=== PATIENT | male | born 1955 | race African-American/Black ===

== ENCOUNTER 2019-03-26 21:59 | Inpatient (IN) | payer OTHER ==
[~2019-03-26] VITALS: Ht 182.9 cm; Wt 102.1 kg
[2019-03-26] MEDS ORDERED: ONDANSETRON PF 4 MG/2 ML VIAL. ONE (23:08)
[2019-03-27 00:09] LABS: BASO # 0.1 x10^3/uL (0.0-0.2); BASO % 1 % (0-3); EOS % 0 % (0-3); HEMATOCRIT 22.8 % (39.0-53.0); HEMOGLOBIN 7.5 g/dL (13.0-17.5); LYMPH # 0.6 x10^3/uL (1.0-4.8); LYMPH % 7 % (24-48); MEAN CORPUSCULAR HEMOGLOBIN 27 pg (25-35); MEAN CORPUSCULAR HGB CONC 33 g/dL (31-37); MEAN CORPUSCULAR VOLUME 83 fL (79-100); MONO # 0.8 x10^3/uL (0.0-1.1); MONO % 9 % (0-9); NEUT # 7.3 x10^3/uL (1.8-7.7); NEUT % 83 % (31-73); PLATELET COUNT 122 x10^3/uL (140-400); RED BLOOD COUNT 2.76 x10^6/uL (4.30-5.70); RED CELL DISTRIBUTION WIDTH 18.3 % (11.5-14.5); WHITE BLOOD COUNT 8.8 x10^3/uL (4.0-11.0)
[2019-03-27 00:20] LABS: CALCIUM 7.9 mg/dL (8.5-10.1); CREATININE 5.5 mg/dL (0.7-1.3); GFR 10.6; POTASSIUM 4.3 mmol/L (3.5-5.1)
[2019-03-27 00:26] LABS: ALBUMIN 3.2 g/dL (3.4-5.0); ALBUMIN/GLOBULIN RATIO 0.8 (1.0-1.7); TOTAL BILIRUBIN 0.5 mg/dL (0.2-1.0); TOTAL PROTEIN 7.1 g/dL (6.4-8.2)
[2019-03-27] MEDS: MECLIZINE HCL 12.5 MG TABLET. PO ONE ×2 (00:45)
--- NOTE | 2019-03-27 00:57 | PHYS DOC ---
Past Medical History Past Medical History: Diabetes-Type II, Hypertension, Renal Disease Additional Past Surgical Histo: cataract surgery, left hamstring surgery Alcohol Use: None Drug Use: None Adult General Chief Complaint Chief Complaint: DIZZY/LIGHT HEADED HPI HPI Patient is a 63 year old male who presents with multiple complaints. The patient states that he has been having worsening swelling in his lower extre mities and been coughing over the past few days. Notes he does have history of chronic renal disease stage III and hypertension. Currently on oral diuretic and states he does follow with a health plan specialist as part of his care. He states that he is also been having worsening dizziness which started earlier today. Notes that the dizziness worsens when he tries to get up and move. It is felt sick to his stomach and has had vomiting this evening with his symptoms. Denies chest pain or fever currently. Does note shortness of breath with exertion. Denies any known history of heart attack. Has not missed any doses of medication at home. States Review of Systems Review of Systems Constitutional: Denies fever or chills [] Eyes: Denies change in visual acuity, redness, or eye pain [] HENT: Denies nasal congestion or sore throat [] Respiratory: Cough[] Cardiovascular: Edema[] GI: Nausea, vomiting, denies abdominal pain bloody stools or diarrhea [] : Denies dysuria or hematuria [] Musculoskeletal: Denies back pain or joint pain [] Integument: Denies rash or skin lesions [] Neurologic: Dizziness, denies focal weakness or sensory changes [] All other systems were reviewed and found to be within normal limits, except as documented in this note. Current Medications Current Medications Current Medications Medications (Trade) Dose Ordered Sig/Tiffani Start Time Stop Time Status Last Admin Dose Admin Meclizine HCl (Antivert) 50 mg 1X ONCE 03/27/19 00:45 03/27/19 00:46 DC 03/27/19 00:45 50 MG Ondansetron HCl (Zofran) 4 mg STK-MED ONCE 03/26/19 23:08 03/26/19 23:31 DC Allergies Allergies Allergies Coded Allergies Type Severity Reaction Last Updated Verified Penicillins Allergy Intermediate 03/27/19 Yes Physical Exam Physical Exam Constitutional: Alert, afebrile, no acute distress. [] HENT: Normocephalic, atraumatic, bilateral external ears normal, oropharynx moist, no oral exudates, nose normal. [] Eyes: PERRLA, EOMI, horizontal nystagmus present, conjunctiva normal, no discharge. [] Neck: Normal range of motion, no tenderness, supple, no stridor. [] Cardiovascular:Heart rate regular rhythm, no murmur [] Lungs & Thorax: Fine rales in all lung hester, no wheezes, normal air movement bilaterally[] Abdomen: Bowel sounds normal, soft, no tenderness, no masses, no pulsatile masses. [] Skin: Warm, dry, no erythema, no rash. [] Back: No tenderness, no CVA tenderness. [] Extremities: No tenderness, no cyanosis, no clubbing, ROM intact, moderate to severe pitting lower extremity edema of 3+. [] Neurologic: Alert and oriented X 3, normal motor function, normal sensory function, no focal deficits noted. [] Current Patient Data Vital Signs Vital Signs Date Time Temp Pulse Resp B/P (MAP) Pulse Ox O2 Delivery O2 Flow Rate FiO2 03/27/19 00:45 81 18 95 03/26/19 23:00 97.8 186/82 (116) Room Air 97.8 Lab Values Laboratory Tests Test 03/26/19 23:05 White Blood Count 8.8 x10^3/uL (4.0-11.0) Red Blood Count 2.76 x10^6/uL (4.30-5.70) L Hemoglobin 7.5 g/dL (13.0-17.5) L Hematocrit 22.8 % (39.0-53.0) L Mean Corpuscular Volume 83 fL (79-100) Mean Corpuscular Hemoglobin 27 pg (25-35) Mean Corpuscular Hemoglobin Concent 33 g/dL (31-37) Red Cell Distribution Width 18.3 % (11.5-14.5) H Platelet Count 122 x10^3/uL (140-400) L Neutrophils (%) (Auto) 83 % (31-73) H Lymphocytes (%) (Auto) 7 % (24-48) L Monocytes (%) (Auto) 9 % (0-9) Eosinophils (%) (Auto) 0 % (0-3) Basophils (%) (Auto) 1 % (0-3) Neutrophils # (Auto) 7.3 x10^3/uL (1.8-7.7) Lymphocytes # (Auto) 0.6 x10^3/uL (1.0-4.8) L Monocytes # (Auto) 0.8 x10^3/uL (0.0-1.1) Eosinophils # (Auto) 0.0 x10^3/uL (0.0-0.7) Basophils # (Auto) 0.1 x10^3/uL (0.0-0.2) Sodium Level 143 mmol/L (136-145) Potassium Level 4.3 mmol/L (3.5-5.1) Chloride Level 108 mmol/L (98-107) H Carbon Dioxide Level 21 mmol/L (21-32) Anion Gap 14 (6-14) Blood Urea Nitrogen 76 mg/dL (8-26) H Creatinine 5.5 mg/dL (0.7-1.3) H Estimated GFR (Cockcroft-Gault) 10.6 BUN/Creatinine Ratio 14 (6-20) Glucose Level 159 mg/dL (70-99) H Calcium Level 7.9 mg/dL (8.5-10.1) L Total Bilirubin 0.5 mg/dL (0.2-1.0) Aspartate Amino Transferase (AST) 27 U/L (15-37) Alanine Aminotransferase (ALT) 70 U/L (16-63) H Alkaline Phosphatase 105 U/L (46-116) Total Protein 7.1 g/dL (6.4-8.2) Albumin 3.2 g/dL (3.4-5.0) L Albumin/Globulin Ratio 0.8 (1.0-1.7) L Lipase 243 U/L (73-393) Laboratory Tests 03/26/19 23:05 Laboratory Tests 03/26/19 23:05 EKG EKG Interpreted by me: Heart rate 83, sinus rhythm, normal intervals, normal axis, no acute ST/T-wave abnormalities present[] Radiology/Procedures Radiology/Procedures [facility] [address] [place] [address] IMAGING REPORT Signed PATIENT: YUNG DUQUE ACCOUNT: [id number] : 1955 LOCATION: [address] [place] [address] AGE: 63 SEX: M EXAM STATUS: ADM IN ORD. PHYSICIAN: MANJU STONE MD REASON: cough PROCEDURE: PORTABLE CHEST 1V Chest AP portable at 2337: Reason for examination: Cough. The heart size is upper normal. Mediastinum is unremarkable. Lung hester show no consolidated infiltrates or pleural effusions. No acute bony abnormalities are seen. Impression: No acute cardiopulmonary disease. Electronically signed by: Luca Raman MD (03/27/2019 1:28 AM) [facility] [place] [place] DICTATED and SIGNED BY: LUCA RAMAN MD DATE: 03/27/19 0128 [] Course & Med Decision Making Course & Med Decision Making Pertinent Labs and Imaging studies reviewed. (See chart for details) The patient was initially treated with IV fluids, Zofran, and meclizine. Upon receiving patient's lab work and x-ray imaging, the patient shows significant evidence of possible worsening renal failure as his GFR is currently 10. Patient also noted to have low hemoglobin 7.5. Chest x-ray shows evidence of pulmonary vascular congestion and given worsening edema in the lower extr emity's, I am concerned patient is having worsening fluid overload. This may be due to the patient's worsening renal function. After speaking with the patient, we have agreed that patient will benefit from admission to the hospital for diuresis and further evaluation with nephrology consultation in hospital. Patient admitted to Dr. Gutierrez. Yandy Disclaimer Yandy Disclaimer This electronic medical record was generated, in whole or in part, using a voice recognition dictation system. Departure Departure Impression: Primary Impression: Fluid overload Additional Impressions: Pulmonary edema Acute on chronic kidney failure Anemia Hypertension Disposition: 09 ADMITTED INPATIENT Admitting Physician: YUNI Condition: STABLE Referrals: BRADEN OROURKE (PCP) Problem Qualifiers Primary Impression: Fluid overload Hypervolemia type: unspecified Qualified Codes: E87.70 - Fluid overload, unspecified Additional Impressions: Pulmonary edema Chronicity: acute Qualified Codes: J81.0 - Acute pulmonary edema Acute on chronic kidney failure Acute renal failure type: unspecified Chronic kidney disease stage: stage 4 (severe) Qualified Codes: N17.9 - Acute kidney failure, unspecified; N18.4 - Chronic kidney disease, stage 4 (severe) Anemia Anemia type: unspecified type Qualified Codes: D64.9 - Anemia, unspecified Hypertension Hypertension type: unspecified Qualified Codes: I10 - Essential (primary) hypertension MANJU STONE MD Mar 27, 2019 00:56
[2019-03-27] MEDS ORDERED: ONDANSETRON PF 4 MG/2 ML VIAL. IV PRN (01:15)
[2019-03-27] MEDS ORDERED: FUROSEMIDE 40 MG/4 ML VIAL. IVP ONE (01:30)
--- NOTE | 2019-03-27 01:31 | RAD ---
Chest AP portable at 2337: Reason for examination: Cough. The heart size is upper normal. Mediastinum is unremarkable. Lung hester show no consolidated infiltrates or pleural effusions. No acute bony abnormalities are seen. Impression: No acute cardiopulmonary disease. Electronically signed by: Batsheva Ren MD (03/27/2019 1:28 AM) [facility] [id number]
[2019-03-27 03:00] VITALS: BP 185/85
[2019-03-27] MEDS ORDERED: TORS20TA2 PO (03:25)
[2019-03-27] MEDS ORDERED: BYSTOLIC20 MG PO (03:25)
[2019-03-27] MEDS ORDERED: LOSA25TA54 PO (03:25)
[2019-03-27] MEDS ORDERED: HYDR-2869 PO (03:25)
[2019-03-27] MEDS ORDERED: INSU100V13 SQ (03:25)
[2019-03-27] MEDS ORDERED: EPLE25TA4 PO (03:25)
[2019-03-27] MEDS ORDERED: ATOR20TA58 PO (03:25)
--- NOTE | 2019-03-27 06:51 | EKG ---
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
[2019-03-27 07:38] VITALS: BP 185/90
[2019-03-27] MEDS ORDERED: CYAN-25 PO (08:24)
[2019-03-27] MEDS ORDERED: FERR325T14 PO (08:24)
[2019-03-27] MEDS ORDERED: CYAN1TAB2 PO (08:24)
[2019-03-27] MEDS ORDERED: MULT1TAB52 PO (08:24)
[2019-03-27] MEDS ORDERED: TERA10CA3 PO (08:24)
[2019-03-27] MEDS ORDERED: FLU VAX QS 2019-20 (36MOS+)/PF 0.5 ML SYRINGE. VAX IM ONE (08:30)
[2019-03-27 10:47] VITALS: BP 175/77
--- NOTE | 2019-03-27 11:19 | PDOC1 ---
History and Physical Date of Admission Date of Admission DATE: 03/27/19 TIME: 11: Identification/Chief Complaint Chief Complaint SEEN IN ER WITH worsening swelling in his lower extremities and been coughing over the past few days. was followed by DR DUGAN AT [facility], however he has retired HAS history of chronic renal disease stage III and hypertension. 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 He states that he is also been having worsening dizziness which started earlier 03/26 . Notes that the dizziness worsens with activity. ate at [employer] YESTERDAY, THAN HAD SEVERE VOMITING X 5-6 episodes sick to his stomach and has had vomiting 03/26 with his symptoms. Denies chest pain or fever currently. Does note shortness of breath with exertion. Past Medical History Past Medical History Past Medical History Past Medical History Past Medical History: Diabetes-Type II, Hypertension, Renal Disease Additional Past Surgical Histo: cataract surgery, left hamstring surgery Alcohol Use: None Drug Use: None fhx htn Endocrine: Diabetes Family History Family History: Hypertension Social History Smoke: No ALCOHOL: none Drugs: None Current Problem List Problem List Problems Medical Problems: (1) Acute on chronic kidney failure Status: Acute (2) Anemia Status: Acute (3) Fluid overload Status: Acute (4) Hypertension Status: Acute (5) Pulmonary edema Status: Acute Current Medications Current Medications Current Medications Ondansetron HCl (Zofran) 4 mg STK-MED ONCE .ROUTE ; Start 03/26/19 at 23:08; Stop 03/26/19 at 23:31; Status DC Meclizine HCl (Antivert) 50 mg 1X ONCE PO Last administered on 03/27/19at 00:45; Start 03/27/19 at 00:45; Stop 03/27/19 at 00:46; Status DC Ondansetron HCl (Zofran) 4 mg PRN Q8HRS PRN IV NAUSEA/VOMITING Last administered on 03/27/19at 03:30; Start 03/27/19 at 01:15; Stop 03/28/19 at 01:14 Furosemide (Lasix) 40 mg 1X ONCE IVP Last administered on 03/27/19at 01:27; Start 03/27/19 at 01:30; Stop 03/27/19 at 01:31; Status DC Influenza Virus Vaccine Quadrival (Afluria Quad 2019-20 (3yr Up) Syringe) 0.5 ml ONCE ONCE VAX IM ; Start 03/27/19 at 08:30; Stop 03/27/19 at 08:31; Status DC Active Scripts Active Reported Folic Acid-Vit B6-Vit B12 Tab (Cyanocobalamin/Fa/Pyridoxine) 1 Each Tablet 1 Each PO DAILY Vitamin B-12 (Cyanocobalamin (Vitamin B-12)) 1,000 Mcg Tablet 1 Tab PO DAILY 30 Days Ferrous Sulfate 325 Mg Tablet 1 Tab PO DAILY Multivitamins (Multivitamin) 1 Each Tablet 1 Tab PO DAILY Terazosin Hcl 10 Mg Capsule 1 Cap PO DAILY Levemir (Insulin Detemir) 100 Unit/1 Ml Vial 60 Unit SQ DAILY Torsemide 20 Mg Tablet 20 Mg PO BID Hydralazine Hcl 50 Mg Tablet 1 Tab PO TID Bystolic (Nebivolol Hcl) 20 Mg Tablet 20 Mg PO DAILY Losartan Potassium (Losartan Potassium) 25 Mg Tablet 25 Mg PO DAILY Atorvastatin Calcium 20 Mg Tablet 20 Mg PO HS Eplerenone 25 Mg Tablet 25 Mg PO DAILY Allergies Allergies: Coded Allergies: Penicillins (Verified Allergy, Intermediate, 03/27/19) ROS Review of System Review of Systems Review of Systems Constitutional: Denies fever or chills [] Eyes: Denies change in visual acuity, redness, or eye pain [] HENT: Denies nasal congestion or sore throat [] Respiratory: Cough[] Cardiovascular: Edema[] GI: Nausea, vomiting, denies abdominal pain bloody stools or diarrhea [] : Denies dysuria or hematuria [] Musculoskeletal: Denies back pain or joint pain [] Integument: Denies rash or skin lesions [] Neurologic: Dizziness, denies focal weakness or sensory changes [] 14 PT systems were reviewed and found to be within normal limits, except as documented . General: YES: Fatigue Respiratory: YES: Shortness of breath, SOB with excertion Cardiovascular: yes Edema Gastrointestinal: Yes Nausea, Yes Vomiting Physical Exam Physical Exam Physical Exam Physical Exam Constitutional: Alert, afebrile, no acute distress. [] HENT: Normocephalic, atraumatic, bilateral external ears normal, oropharynx moist, no oral exudates, nose normal. [] Eyes: PERRLA, EOMI, horizontal nystagmus present, conjunctiva normal, no discharge. [] Neck: Normal range of motion, no tenderness, supple, no stridor. [] Cardiovascular:Heart rate regular rhythm, no murmur [] Lungs & Thorax: Fine rales in all lung hester, no wheezes, normal air movement bilaterally[] Abdomen: Bowel sounds normal, soft, no tenderness, no masses, no pulsatile masses. [] Skin: Warm, dry, no erythema, no rash. [] Back: No tenderness, no CVA tenderness. [] Extremities: No tenderness, no cyanosis, no clubbing, ROM intact, moderate to severe pitting lower extremity edema of 3+. [] Neurologic: Alert and oriented X 3, normal motor function, normal sensory function, no focal deficits noted. [] General: Alert, Oriented X3, Cooperative, No acute distress HEENT: Atraumatic, EOMI Lungs: Clear to auscultation Heart: RRR Breasts: Not examined Abdomen: Soft Rectal Exam: not examined PELVIC: Examination not indicated Extremities: No cyanosis, Other (2 plus ankle edema) Neuro: Normal speech, Cranial nerves 3-12 NL Psych/Mental Status: Mental status NL, Mood NL Vitals Vitals Vital Signs Date Time Temp Pulse Resp B/P (MAP) Pulse Ox O2 Delivery O2 Flow Rate FiO2 03/27/19 10:47 97.6 68 18 175/77 (109) 96 Room Air 97.6 Labs Labs Laboratory Tests Test 03/26/19 23:05 03/27/19 07:18 White Blood Count 8.8 x10^3/uL (4.0-11.0) Red Blood Count 2.76 x10^6/uL (4.30-5.70) Hemoglobin 7.5 g/dL (13.0-17.5) Hematocrit 22.8 % (39.0-53.0) Mean Corpuscular Volume 83 fL (79-100) Mean Corpuscular Hemoglobin 27 pg (25-35) Mean Corpuscular Hemoglobin Concent 33 g/dL (31-37) Red Cell Distribution Width 18.3 % (11.5-14.5) Platelet Count 122 x10^3/uL (140-400) Neutrophils (%) (Auto) 83 % (31-73) Lymphocytes (%) (Auto) 7 % (24-48) Monocytes (%) (Auto) 9 % (0-9) Eosinophils (%) (Auto) 0 % (0-3) Basophils (%) (Auto) 1 % (0-3) Neutrophils # (Auto) 7.3 x10^3/uL (1.8-7.7) Lymphocytes # (Auto) 0.6 x10^3/uL (1.0-4.8) Monocytes # (Auto) 0.8 x10^3/uL (0.0-1.1) Eosinophils # (Auto) 0.0 x10^3/uL (0.0-0.7) Basophils # (Auto) 0.1 x10^3/uL (0.0-0.2) Sodium Level 143 mmol/L (136-145) Potassium Level 4.3 mmol/L (3.5-5.1) Chloride Level 108 mmol/L (98-107) Carbon Dioxide Level 21 mmol/L (21-32) Anion Gap 14 (6-14) Blood Urea Nitrogen 76 mg/dL (8-26) Creatinine 5.5 mg/dL (0.7-1.3) Estimated GFR (Cockcroft-Gault) 10.6 BUN/Creatinine Ratio 14 (6-20) Glucose Level 159 mg/dL (70-99) Calcium Level 7.9 mg/dL (8.5-10.1) Total Bilirubin 0.5 mg/dL (0.2-1.0) Aspartate Amino Transf (AST/SGOT) 27 U/L (15-37) Alanine Aminotransferase (ALT/SGPT) 70 U/L (16-63) Alkaline Phosphatase 105 U/L (46-116) Total Protein 7.1 g/dL (6.4-8.2) Albumin 3.2 g/dL (3.4-5.0) Albumin/Globulin Ratio 0.8 (1.0-1.7) Lipase 243 U/L (73-393) Glucose (Fingerstick) 140 mg/dL (70-99) Laboratory Tests Test 03/26/19 23:05 03/27/19 07:18 White Blood Count 8.8 x10^3/uL (4.0-11.0) Red Blood Count 2.76 x10^6/uL (4.30-5.70) Hemoglobin 7.5 g/dL (13.0-17.5) Hematocrit 22.8 % (39.0-53.0) Mean Corpuscular Volume 83 fL (79-100) Mean Corpuscular Hemoglobin 27 pg (25-35) Mean Corpuscular Hemoglobin Concent 33 g/dL (31-37) Red Cell Distribution Width 18.3 % (11.5-14.5) Platelet Count 122 x10^3/uL (140-400) Neutrophils (%) (Auto) 83 % (31-73) Lymphocytes (%) (Auto) 7 % (24-48) Monocytes (%) (Auto) 9 % (0-9) Eosinophils (%) (Auto) 0 % (0-3) Basophils (%) (Auto) 1 % (0-3) Neutrophils # (Auto) 7.3 x10^3/uL (1.8-7.7) Lymphocytes # (Auto) 0.6 x10^3/uL (1.0-4.8) Monocytes # (Auto) 0.8 x10^3/uL (0.0-1.1) Eosinophils # (Auto) 0.0 x10^3/uL (0.0-0.7) Basophils # (Auto) 0.1 x10^3/uL (0.0-0.2) Sodium Level 143 mmol/L (136-145) Potassium Level 4.3 mmol/L (3.5-5.1) Chloride Level 108 mmol/L (98-107) Carbon Dioxide Level 21 mmol/L (21-32) Anion Gap 14 (6-14) Blood Urea Nitrogen 76 mg/dL (8-26) Creatinine 5.5 mg/dL (0.7-1.3) Estimated GFR (Cockcroft-Gault) 10.6 BUN/Creatinine Ratio 14 (6-20) Glucose Level 159 mg/dL (70-99) Calcium Level 7.9 mg/dL (8.5-10.1) Total Bilirubin 0.5 mg/dL (0.2-1.0) Aspartate Amino Transf (AST/SGOT) 27 U/L (15-37) Alanine Aminotransferase (ALT/SGPT) 70 U/L (16-63) Alkaline Phosphatase 105 U/L (46-116) Total Protein 7.1 g/dL (6.4-8.2) Albumin 3.2 g/dL (3.4-5.0) Albumin/Globulin Ratio 0.8 (1.0-1.7) Lipase 243 U/L (73-393) Glucose (Fingerstick) 140 mg/dL (70-99) Images Images PROCEDURE: PORTABLE CHEST 1V Chest AP portable at 2337: Reason for examination: Cough. The heart size is upper normal. Mediastinum is unremarkable. Lung hester show no consolidated infiltrates or pleural effusions. No acute bony abnormalities are seen. Impression: No acute cardiopulmonary disease. Electronically signed by: Batsheva Raman MD (03/27/2019 1:28 AM) [facility] [id number] DICTATED and SIGNED BY: BATSHEVA RAMAN MD DATE: 03/27/19 0128 VTE Prophylaxis Ordered VTE Prophylaxis Devices: Yes VTE Pharmacological Prophylaxi: Yes Assessment/Plan Assessment/Plan Impression: Fluid overload? suspect acute volume depletion from GI LOSS, vomiting obesity ACUTE on chronic renal failure Pulmonary edema? anemia hx hypertension possible food poisoning diabetes hx plan admit tele nephrology consult dvt prophylaxis, heparin sq home meds, hold ARB echo cardiology consult accuchecks 76 min pt exam, chart review, > 50% of time spent with exam, chart review, pt care coordination YOLY WHITING MD Mar 27, 2019 11:19
--- NOTE | 2019-03-27 11:40 | NUR ---
SW following pt for dc planning. Chart reviewed. Pt lives at home and has PMHx of diabetes-Type II, Hypertension, Renal Disease. Pt is admitted for fluid overload and renal failure. Nephrology consulted. SW will be available as needed.
[2019-03-27] MEDS: INSULIN GLARGINE SYRINGE. SQ SCH (12:00)
--- NOTE | 2019-03-27 12:07 | PDOC2 ---
CONSULT Date of Consult Date of Consult DATE: 03/27/19 TIME: 11:50 Reason for Consult Reason for Consult: ASA Source Source: Chart review, Patient History of Present Illness Reason for Visit: barrington is a 63 year old AA male who presents with multiple complaints to the ER . c/o having worsening swelling in his lower extremities and been coughing over the past few days. Notes he does have history of chronic renal disease stage III and hypertension. He states that he is also been having worsening dizziness which started earlier today. Notes that the dizziness worsens when he tries to get up and move. It is felt sick to his stomach and has had vomiting this evening with his symptoms. Denies chest pain or fever currently. Does note shortness of breath with exertion. Denies any known history of heart attack. He follows with Dr. Hudson for CKD stage 4 /?5 . No access for Dialysis as he has refused access placement for now. Inclining towards PD Denies any urinary complaints, Good UOP. No NSAID use since last 1 year . No Altered taste, had N/V (7-8 last evening) . On Torsemide at home- last dose 7-8 gays back . He noted Increased edema in Lt L and wt gain Currently no n/v. 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 No ALCOHOL: none Drugs: None Current Problem List Problem List Problems Medical Problems: (1) Acute on chronic kidney failure Status: Acute (2) Anemia Status: Acute (3) Fluid overload Status: Acute (4) Hypertension Status: Acute (5) Pulmonary edema Status: Acute Current Medications Current Medications Current Medications Ondansetron HCl (Zofran) 4 mg STK-MED ONCE .ROUTE ; Start 03/26/19 at 23:08; Stop 03/26/19 at 23:31; Status DC Meclizine HCl (Antivert) 50 mg 1X ONCE PO Last administered on 03/27/19at 00:45; Start 03/27/19 at 00:45; Stop 03/27/19 at 00:46; Status DC Ondansetron HCl (Zofran) 4 mg PRN Q8HRS PRN IV NAUSEA/VOMITING Last administered on 03/27/19at 03:30; Start 03/27/19 at 01:15; Stop 03/28/19 at 01:14 Furosemide (Lasix) 40 mg 1X ONCE IVP Last administered on 03/27/19at 01:27; Start 03/27/19 at 01:30; Stop 03/27/19 at 01:31; Status DC Influenza Virus Vaccine Quadrival (Afluria Quad 2019-20 (3yr Up) Syringe) 0.5 ml ONCE ONCE VAX IM ; Start 03/27/19 at 08:30; Stop 03/27/19 at 08:31; Status DC Atorvastatin Calcium (Lipitor) 20 mg HS PO ; Start 03/27/19 at 21:00 Cyanocobalamin (Vitamin B-12) 1,000 mcg DAILY PO ; Start 03/27/19 at 12:00 Ferrous Sulfate (Feosol) 325 mg DAILY08 PO ; Start 03/27/19 at 12:00 Hydralazine HCl (Apresoline) 50 mg TID PO ; Start 03/27/19 at 14:00 Vitamin B Complex/ Vitamin C (Tara-Adamaris) 1 tab DAILY PO ; Start 03/27/19 at 12:00 Non-Formulary Medication (Eplerenone ) 25 mg DAILY PO ; Start 03/28/19 at 09:00; Status UNV Insulin Glargine (Lantus Syringe) 60 unit DAILY SQ ; Start 03/27/19 at 12:00 Multivitamins (Thera M Plus) 1 tab DAILY PO ; Start 03/28/19 at 09:00 Metoprolol Tartrate (Lopressor) 50 mg BID PO ; Start 03/27/19 at 12:00 Terazosin HCl (Hytrin) 10 mg DAILY PO ; Start 03/27/19 at 12:00 Active Scripts Active Reported Folic Acid-Vit B6-Vit B12 Tab (Cyanocobalamin/Fa/Pyridoxine) 1 Each Tablet 1 Each PO DAILY Vitamin B-12 (Cyanocobalamin (Vitamin B-12)) 1,000 Mcg Tablet 1 Tab PO DAILY 30 Days Ferrous Sulfate 325 Mg Tablet 1 Tab PO DAILY Multivitamins (Multivitamin) 1 Each Tablet 1 Tab PO DAILY Terazosin Hcl 10 Mg Capsule 1 Cap PO DAILY Levemir (Insulin Detemir) 100 Unit/1 Ml Vial 60 Unit SQ DAILY Torsemide 20 Mg Tablet 20 Mg PO BID Hydralazine Hcl 50 Mg Tablet 1 Tab PO TID Bystolic (Nebivolol Hcl) 20 Mg Tablet 20 Mg PO DAILY Losartan Potassium (Losartan Potassium) 25 Mg Tablet 25 Mg PO DAILY Atorvastatin Calcium 20 Mg Tablet 20 Mg PO HS Eplerenone 25 Mg Tablet 25 Mg PO DAILY Allergies Allergies: Coded Allergies: Penicillins (Verified Allergy, Intermediate, 03/27/19) ROS Review of System Per HPI Physical Exam Physical Exam GEN: NAD HEEN: OM moist , on RA NECK: Supple CVS: RRR, No rub RESP: CTA Bilat, No Acc. Muscle Use GI: BS + ve, : No CVA tenderness, No Suprapubic Tenderness, No Hebert NEURO- Grossly Normal, No Asterexis SKIN No Rash Vital Signs Vital Signs Date Time Temp Pulse Resp B/P (MAP) Pulse Ox O2 Delivery O2 Flow Rate FiO2 03/27/19 10:47 97.6 68 18 175/77 (109) 96 Room Air 97.6 Assessment & Plan ASA on CKD vs Progression Check UA, Obtain Labs done at PCP office approx 1 week ago strict I/O , Supportive care , Monitor Anticipating initiating HD tomorrow if no improvement in renal function NPO after mid night for TDC if Pt agreeable He is not sure if he wants to initiate HD yet, may want to back to his primary Neph for further follow up and access eval CKD Stage 4/5 - Per Hx Obtained from Pt . Cr 3 to 4.5 at his baseline for many years Follows with Dr. Araujo ([employer]) E-Lytes and acid base stable Anemia- Chronic Baseline per Pt is 8.0 On PO Fe, was advised IV Fe which Pt refused last Colonoscopy HTN- BP Very high Non compliance with meds , stopped taking Torsemise on his own approx 7-8 days back Continue Home Antihypertensives except Diuretics Shortness of Breath- Mild at presentaion, recd IV Lasix in ER Currently asymptomatic , recommend holding diuretics DM per primary Discussed at great length with Pt and RN Labs Labs Laboratory Tests Test 03/26/19 23:05 03/27/19 07:18 03/27/19 11:29 White Blood Count 8.8 x10^3/uL (4.0-11.0) Red Blood Count 2.76 x10^6/uL (4.30-5.70) Hemoglobin 7.5 g/dL (13.0-17.5) Hematocrit 22.8 % (39.0-53.0) Mean Corpuscular Volume 83 fL (79-100) Mean Corpuscular Hemoglobin 27 pg (25-35) Mean Corpuscular Hemoglobin Concent 33 g/dL (31-37) Red Cell Distribution Width 18.3 % (11.5-14.5) Platelet Count 122 x10^3/uL (140-400) Neutrophils (%) (Auto) 83 % (31-73) Lymphocytes (%) (Auto) 7 % (24-48) Monocytes (%) (Auto) 9 % (0-9) Eosinophils (%) (Auto) 0 % (0-3) Basophils (%) (Auto) 1 % (0-3) Neutrophils # (Auto) 7.3 x10^3/uL (1.8-7.7) Lymphocytes # (Auto) 0.6 x10^3/uL (1.0-4.8) Monocytes # (Auto) 0.8 x10^3/uL (0.0-1.1) Eosinophils # (Auto) 0.0 x10^3/uL (0.0-0.7) Basophils # (Auto) 0.1 x10^3/uL (0.0-0.2) Sodium Level 143 mmol/L (136-145) Potassium Level 4.3 mmol/L (3.5-5.1) Chloride Level 108 mmol/L (98-107) Carbon Dioxide Level 21 mmol/L (21-32) Anion Gap 14 (6-14) Blood Urea Nitrogen 76 mg/dL (8-26) Creatinine 5.5 mg/dL (0.7-1.3) Estimated GFR (Cockcroft-Gault) 10.6 BUN/Creatinine Ratio 14 (6-20) Glucose Level 159 mg/dL (70-99) Calcium Level 7.9 mg/dL (8.5-10.1) Total Bilirubin 0.5 mg/dL (0.2-1.0) Aspartate Amino Transf (AST/SGOT) 27 U/L (15-37) Alanine Aminotransferase (ALT/SGPT) 70 U/L (16-63) Alkaline Phosphatase 105 U/L (46-116) Total Protein 7.1 g/dL (6.4-8.2) Albumin 3.2 g/dL (3.4-5.0) Albumin/Globulin Ratio 0.8 (1.0-1.7) Lipase 243 U/L (73-393) Glucose (Fingerstick) 140 mg/dL (70-99) 142 mg/dL (70-99) Laboratory Tests Test 03/26/19 23:05 03/27/19 07:18 03/27/19 11:29 White Blood Count 8.8 x10^3/uL (4.0-11.0) Red Blood Count 2.76 x10^6/uL (4.30-5.70) Hemoglobin 7.5 g/dL (13.0-17.5) Hematocrit 22.8 % (39.0-53.0) Mean Corpuscular Volume 83 fL (79-100) Mean Corpuscular Hemoglobin 27 pg (25-35) Mean Corpuscular Hemoglobin Concent 33 g/dL (31-37) Red Cell Distribution Width 18.3 % (11.5-14.5) Platelet Count 122 x10^3/uL (140-400) Neutrophils (%) (Auto) 83 % (31-73) Lymphocytes (%) (Auto) 7 % (24-48) Monocytes (%) (Auto) 9 % (0-9) Eosinophils (%) (Auto) 0 % (0-3) Basophils (%) (Auto) 1 % (0-3) Neutrophils # (Auto) 7.3 x10^3/uL (1.8-7.7) Lymphocytes # (Auto) 0.6 x10^3/uL (1.0-4.8) Monocytes # (Auto) 0.8 x10^3/uL (0.0-1.1) Eosinophils # (Auto) 0.0 x10^3/uL (0.0-0.7) Basophils # (Auto) 0.1 x10^3/uL (0.0-0.2) Sodium Level 143 mmol/L (136-145) Potassium Level 4.3 mmol/L (3.5-5.1) Chloride Level 108 mmol/L (98-107) Carbon Dioxide Level 21 mmol/L (21-32) Anion Gap 14 (6-14) Blood Urea Nitrogen 76 mg/dL (8-26) Creatinine 5.5 mg/dL (0.7-1.3) Estimated GFR (Cockcroft-Gault) 10.6 BUN/Creatinine Ratio 14 (6-20) Glucose Level 159 mg/dL (70-99) Calcium Level 7.9 mg/dL (8.5-10.1) Total Bilirubin 0.5 mg/dL (0.2-1.0) Aspartate Amino Transf (AST/SGOT) 27 U/L (15-37) Alanine Aminotransferase (ALT/SGPT) 70 U/L (16-63) Alkaline Phosphatase 105 U/L (46-116) Total Protein 7.1 g/dL (6.4-8.2) Albumin 3.2 g/dL (3.4-5.0) Albumin/Globulin Ratio 0.8 (1.0-1.7) Lipase 243 U/L (73-393) Glucose (Fingerstick) 140 mg/dL (70-99) 142 mg/dL (70-99) Review All relevant outside records, renal labs, imaging studies, telemetry/EKG's were reviewed. NOA DANIELS MD Mar 27, 2019 12:07
[2019-03-27] MEDS: CYANOCOBALAMIN (VITAMIN B-12) 1,000 MCG TABLET. PO SCH (12:51)
[2019-03-27] MEDS: FERROUS SULFATE 325 MG TABLET. PO SCH (12:51)
[2019-03-27] MEDS: METOPROLOL TART IMMED RELEASE 50 MG TABLET. PO SCH ×2 (12:51→21:34)
[2019-03-27] MEDS: TERAZOSIN 5 MG CAPSULE. PO SCH (12:51)
[2019-03-27] MEDS: FOLIC/VIT B COMP W-C (RENAL) TABLET. PO SCH (12:56)
--- NOTE | 2019-03-27 13:41 | PDOC2 ---
CARDIAC CONSULT DATE OF CONSULT Date of Consult DATE: 03/27/19 TIME: 13:33 REASON FOR CONSULT Reason for Consult: Edema HTN REFERRING PHYSICIAN Referring Physician: Fullbright SOURCE Source: Chart review, Patient HISTORY OF PRESENT ILLNESS HISTORY OF PRESENT ILLNESS This is a 63 yo male admitted for complains of cough and increasing leg swelling. He just came back from [place] and developed some sore throat and cough with yellow sputum and thinking that this is from the weather change. He did start taking mucinex. He stopped taking torsemide per the advise of his PCP. Yesterday after work he developed dizziness but this is more from vertigo. He noted the room spinning and could not keep his balance. This made him nauseated. No chest pain and no significant SOA. Negative for PND nor orthopnea. No hx of syncope nor arrhythmia nor CAD. He does have hx of CKD3 and has been taking inspra, high dose losartan and torsemide. He noted that his legs have been becoming more swollen. Again no CP, palpitations. No recreational drug use. He has not been taking any NSAIDs. He takes iron as he is chronically anemic with Hgb typically around 8.5. 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) Renal/: Chronic renal insuff Endocrine: Diabetes (2) Dermatology: No pertinent hx PAST SURGICAL HISTORY Past Surgical History: Cataract Removal, Other (hamstring surgery) FAMILY HISTORY Family History noncontributory SOCIAL HISTORY Smoke: No ALCOHOL: none Drugs: None Lives: with Family CURRENT MEDICATIONS CURRENT MEDICATIONS Current Medications Medications (Trade) Dose Ordered Sig/Tiffani Route PRN Reason Start Time Stop Time Status Last Admin Dose Admin Meclizine HCl (Antivert) 50 mg 1X ONCE PO 03/27/19 00:45 03/27/19 00:46 DC 03/27/19 00:45 Ondansetron HCl (Zofran) 4 mg PRN Q8HRS PRN IV NAUSEA/VOMITING 03/27/19 01:15 03/28/19 01:14 03/27/19 03:30 Furosemide (Lasix) 40 mg 1X ONCE IVP 03/27/19 01:30 03/27/19 01:31 DC 03/27/19 01:27 Cyanocobalamin (Vitamin B-12) 1,000 mcg DAILY PO 03/27/19 12:00 03/27/19 12:51 Ferrous Sulfate (Feosol) 325 mg DAILY08 PO 03/27/19 12:00 03/27/19 12:51 Vitamin B Complex/ Vitamin C (Tara-Adamaris) 1 tab DAILY PO 03/27/19 12:00 03/27/19 12:56 Metoprolol Tartrate (Lopressor) 50 mg BID PO 03/27/19 12:00 03/27/19 12:51 Terazosin HCl (Hytrin) 10 mg DAILY PO 03/27/19 12:00 03/27/19 12:51 ALLERGIES ALLERGIES: Coded Allergies: Penicillins (Verified Allergy, Intermediate, 03/27/19) ROS Review of System 14 point ROS evaluated with pertinent positives noted per HPI PHYSICAL EXAM General: Alert, Oriented X3, Cooperative, No acute distress HEENT: Atraumatic, Mucous membr. moist/pink Lungs: Clear to auscultation, Normal air movement Heart: Regular rate (SR), Normal S1, Normal S2, Other (2/6 systolic murmur to LLS border) Extremities: No cyanosis, Other (2-3+ bilateral LE pitting edema) Skin: No breakdown Neuro: Normal speech, Strength at 5/5 X4 ext, Sensation intact Psych/Mental Status: Mental status NL, Mood NL MUSCULOSKELETAL: Osteoarthritic changes both hands VITALS/I&O VITALS/I&O: Vital Signs Date Time Temp Pulse Resp B/P (MAP) Pulse Ox O2 Delivery O2 Flow Rate FiO2 03/27/19 12:51 68 175/77 03/27/19 10:47 97.6 18 96 Room Air 97.6 I & O 03/26/19 03/26/19 03/27/19 15:00 23:00 07:00 Intake Total 200 ml Output Total 250 ml Balance -50 ml LABS Lab: Laboratory Tests Test 03/26/19 23:05 03/27/19 07:18 03/27/19 11:29 White Blood Count 8.8 x10^3/uL (4.0-11.0) Red Blood Count 2.76 x10^6/uL (4.30-5.70) L Hemoglobin 7.5 g/dL (13.0-17.5) L Hematocrit 22.8 % (39.0-53.0) L Mean Corpuscular Volume 83 fL (79-100) Mean Corpuscular Hemoglobin 27 pg (25-35) Mean Corpuscular Hemoglobin Concent 33 g/dL (31-37) Red Cell Distribution Width 18.3 % (11.5-14.5) H Platelet Count 122 x10^3/uL (140-400) L Neutrophils (%) (Auto) 83 % (31-73) H Lymphocytes (%) (Auto) 7 % (24-48) L Monocytes (%) (Auto) 9 % (0-9) Eosinophils (%) (Auto) 0 % (0-3) Basophils (%) (Auto) 1 % (0-3) Neutrophils # (Auto) 7.3 x10^3/uL (1.8-7.7) Lymphocytes # (Auto) 0.6 x10^3/uL (1.0-4.8) L Monocytes # (Auto) 0.8 x10^3/uL (0.0-1.1) Eosinophils # (Auto) 0.0 x10^3/uL (0.0-0.7) Basophils # (Auto) 0.1 x10^3/uL (0.0-0.2) Sodium Level 143 mmol/L (136-145) Potassium Level 4.3 mmol/L (3.5-5.1) Chloride Level 108 mmol/L (98-107) H Carbon Dioxide Level 21 mmol/L (21-32) Anion Gap 14 (6-14) Blood Urea Nitrogen 76 mg/dL (8-26) H Creatinine 5.5 mg/dL (0.7-1.3) H Estimated GFR (Cockcroft-Gault) 10.6 BUN/Creatinine Ratio 14 (6-20) Glucose Level 159 mg/dL (70-99) H Calcium Level 7.9 mg/dL (8.5-10.1) L Total Bilirubin 0.5 mg/dL (0.2-1.0) Aspartate Amino Transferase (AST) 27 U/L (15-37) Alanine Aminotransferase (ALT) 70 U/L (16-63) H Alkaline Phosphatase 105 U/L (46-116) Total Protein 7.1 g/dL (6.4-8.2) Albumin 3.2 g/dL (3.4-5.0) L Albumin/Globulin Ratio 0.8 (1.0-1.7) L Lipase 243 U/L (73-393) Glucose (Fingerstick) 140 mg/dL (70-99) H 142 mg/dL (70-99) H Laboratory Tests 03/26/19 23:05 Laboratory Tests 03/26/19 23:05 ASSESSMENT/PLAN ASSESSMENT/PLAN 1. ASA on CKD3/uremic: possibly med related 2. Suspect chronic diastolic CHF: mainly due to renal dysfunction, compensated 3. URI which likely induced vertigo 4. HTN urgency 5. DM2: on insulin therapy. 6. Chronic anemia: typical Hgb at 8.5 per pt, takes Fe 7. Obesity 8. Chronic leg edema Recommendations 1. Stop inspra, ARB and torsemide. Nephrology consult. 2. Continue hydralazine and metoprolol and will add norvasc. 3. TTE, TSH, lipids. LE venous doppler is pending. 4. Supportive care. MARVIN WIN [employer] CONTRACT ANALYST Mar 27, 2019 13:41
[2019-03-27] MEDS: HEPARIN for SUB-Q USE 5,000 UNIT/ML VIAL. SQ SCH ×2 (14:00→21:34)
[2019-03-27] MEDS: amLODIPine BESYLATE 10 MG TABLET PO SCH ×2 (14:15→15:02)
[2019-03-27 14:18] LABS: CHOLESTEROL/HDL RATIO 1.8
[2019-03-27 15:04] LABS: BILIRUBIN,URINE NEGATIVE (NEG); CLARITY,URINE CLEAR; COLOR,URINE YELLOW; NITRITE,URINE NEGATIVE (NEG); PH,URINE 5.5; PROTEIN,URINE >=300 mg/dL (NEG-TRACE); UROBILINOGEN,URINE 0.2 mg/dL (0.2 mg/dL)
--- NOTE | 2019-03-27 15:04 | NUR ---
PT STATES THAT HE IS ALLERGIC TO NORVASC. HELD NORVASC
[2019-03-27 15:11] VITALS: BP 178/79
--- NOTE | 2019-03-27 15:11 | CARD ---
MR#: [id number] Date of Study: 03/27/2019 Ordering Physician: YOLY WHITING, Referring Physician: YOLY WHITING Tech: Destiny Gupta RDCS APPROVED REPORT EXAM: Two-dimensional and M-mode echocardiogram with Doppler and color Doppler. Other Information Quality : GoodHR: 63bpm Rhythm : NSR INDICATION Congestive Heart Failure 2D DIMENSIONS RVDd2.9 (2.9-3.5cm)Left Atrium(2D)4.3 (1.6-4.0cm) IVSd1.2 (0.7-1.1cm)Aortic Root(2D)3.0 (2.0-3.7cm) LVDd4.9 (3.9-5.9cm)LVOT Diameter1.8 (1.8-2.4cm) PWd1.1 (0.7-1.1cm)LVDs3.6 (2.5-4.0cm) FS (%) 26.2 %SV57.6 ml LVEF(%)51.2 (>50%) M-Mode DIMENSIONS Left Atrium(MM)4.07 (2.5-4.0cm)Aortic Root3.24 (2.2-3.7cm) Aortic Valve AoV Peak Cecil.140.0cm/sAoV VTI33.8cm AO Peak GR.7.8mmHgLVOT Peak Cecil.109.9cm/s AO Mean GR.4mmHgAVA (VMAX)1.98cm2 VIOLA (VTI)2.00cm2 Mitral Valve MV E Gytanijr997.4cm/sMV E Peak Gr.10mmHg MV DECEL [id number] A Mmeoiozk05.2cm/s MV E Mean Gr.3mmHgE/A Ratio1.4 Pulmonary Valve PV Peak Mwjiuqka988.7cm/s Tricuspid Valve TR P. [id number]/sRAP [id number] TR Peak Gr.[id number] LEFT VENTRICLE The left ventricle is normal size. There is mild concentric left ventricular hypertrophy. Left ventri jamel systolic function is low normal. The Ejection Fraction is 50-55%. There is normal LV segmental wa ll motion. Transmitral Doppler flow pattern is Grade II-pseudonormal filling dynamics. RIGHT VENTRICLE The right ventricle is normal size. There is normal right ventricular wall thickness. The right ventr icular systolic function is normal. ATRIA The left atrium is mildly dilated. The right atrium size is normal. The interatrial septum is intact with no evidence for an atrial septal defect or patent foramen ovale as noted on 2-D or Doppler imagi ng. AORTIC VALVE The aortic valve is calcified but opens well. The aortic valve is trileaflet. Doppler and Color Flow revealed trace aortic regurgitation. There is no significant aortic valvular stenosis. There is no ao rtic valvular vegetation. MITRAL VALVE The mitral valve is normal in structure and function. There is no evidence of mitral valve prolapse. There is no mitral valve stenosis. Doppler and Color-flow revealed mild mitral regurgitation. TRICUSPID VALVE The tricuspid valve is normal in structure and function. Doppler and Color Flow revealed mild tricusp id regurgitation. The PA pressure was estimated at 56 mmHg. There is no tricuspid valve prolapse or v egetation. There is no tricuspid valve stenosis. PULMONIC VALVE The pulmonary valve is normal in structure and function. Doppler and Color Flow revealed mild pulmoni c valvular regurgitation. There is no pulmonic valvular stenosis. GREAT VESSELS The aortic root is normal in size. The ascending aorta is normal in size. The IVC is dilated and darryl apses <50% with inspiration. PERICARDIAL EFFUSION There is no evidence of significant pericardial effusion. Critical Notification Critical Value: No <Conclusion> The left ventricle is normal size. Left ventricle systolic function is low normal. The Ejection Fraction is 50-55%. There is mild concentric left ventricular hypertrophy. There is no significant aortic valvular stenosis. Doppler and Color Flow revealed trace aortic regurgitation. Doppler and Color-flow revealed mild mitral regurgitation. Doppler and Color Flow revealed mild tricuspid regurgitation. The PA pressure was estimated at 56 mmHg. Signed by : Kiko Borrero MD Electronically Approved : 03/27/2019 15:11:00
[2019-03-27 15:18] LABS: BACTERIA,URINE 0 /HPF (0-FEW); RBC,URINE 0 /HPF (0-2); WBC,URINE 0 /HPF (0-4)
--- NOTE | 2019-03-27 16:46 | RAD ---
Examination: VENOUS LOWER EXT BILATERAL History: Lower extremity edema COMPARISON/CORRELATION: None FINDINGS: Bilateral lower extremity duplex venous ultrasound exam was performed. Grayscale, color Doppler, and spectral Doppler imaging was performed. Compression and augmentation was performed. The right common femoral vein, superficial femoral vein, popliteal vein, and greater saphenous vein are normal with no evidence of deep venous thrombus. Normal compressibility and augmentation is evident. The left common femoral vein, superficial femoral vein, popliteal vein, and greater saphenous vein are normal with no evidence of deep venous thrombus. Normal compressibility and augmentation is evident. Visualized calf veins bilaterally are unremarkable. IMPRESSION: Normal bilateral lower extremity duplex ultrasound exam. No evidence of deep venous thrombus involving the lower extremities. Electronically signed by: Dov Ríos MD (03/27/2019 4:43 PM) [facility]
[2019-03-27 19:27] VITALS: BP 173/82
[2019-03-27] MEDS ORDERED: ATORVASTATIN CALCIUM 20 MG TABLET PO SCH (21:00)
[2019-03-27 23:07] LABS: HEMOGLOBIN A1C 6.2 % (4.8-5.6)
[2019-03-27 23:43] VITALS: BP 176/87
[2019-03-28 03:17] VITALS: BP 166/65
[2019-03-28] MEDS: HEPARIN for SUB-Q USE 5,000 UNIT/ML VIAL. SQ SCH (06:00)
[2019-03-28 07:00] VITALS: BP 174/74
[2019-03-28 07:14] LABS: BASO % 1 % (0-3); EOS # 0.1 x10^3/uL (0.0-0.7); EOS % 2 % (0-3); HEMATOCRIT 21.6 % (39.0-53.0); HEMOGLOBIN 7.1 g/dL (13.0-17.5); LYMPH # 0.6 x10^3/uL (1.0-4.8); LYMPH % 8 % (24-48); MEAN CORPUSCULAR HEMOGLOBIN 27 pg (25-35); MEAN CORPUSCULAR HGB CONC 33 g/dL (31-37); MEAN CORPUSCULAR VOLUME 82 fL (79-100); MONO % 13 % (0-9); NEUT # 5.9 x10^3/uL (1.8-7.7); NEUT % 77 % (31-73); PLATELET COUNT 121 x10^3/uL (140-400); RED BLOOD COUNT 2.63 x10^6/uL (4.30-5.70); RED CELL DISTRIBUTION WIDTH 18.2 % (11.5-14.5); WHITE BLOOD COUNT 7.7 x10^3/uL (4.0-11.0)
[2019-03-28 07:46] LABS: ALBUMIN 2.8 g/dL (3.4-5.0); CALCIUM 7.8 mg/dL (8.5-10.1); CREATININE 5.5 mg/dL (0.7-1.3); GFR 12.8; PHOSPHORUS 4.3 mg/dL (2.6-4.7)
--- NOTE | 2019-03-28 08:45 | PDOC ---
PROGRESS NOTES History of Present Illness History of Present Illness VTE Prophylaxis Ordered VTE Prophylaxis Devices: Yes VTE Pharmacological Prophylaxi: Yes DISCHARGE DX Assessment/Plan Impression: Fluid overload? suspect acute volume depletion from GI LOSS, vomiting obesity ACUTE on chronic renal failure Pulmonary edema? anemia hx hypertension possible food poisoning diabetes hx plan admit tele nephrology consult OK WITH D/C SINCE REFUSING DIALYSIS AMA dvt prophylaxis, heparin sq home meds, hold ARB echo Left ventricle systolic function is low normal. Ejection Fraction is 50-55%. PA pressure was estimated at 56 mmHg. cardiology consult accuchecks PT REFUSING DIALYSIS AT THIS TIME AMA 33 min pt exam, chart review D/C PLANNING TIME , > 50% of time spent with exam, chart review, pt care coordination Vitals Vitals Vital Signs Date Time Temp Pulse Resp B/P (MAP) Pulse Ox O2 Delivery O2 Flow Rate FiO2 03/28/19 07:00 99.3 74 16 174/74 (107) 94 Room Air 99.3 Physical Exam General: Alert, Oriented X3, Cooperative, No acute distress Heart: Regular rate (SR), Normal S1, Normal S2, Other (2/6 systolic murmur to LLS border) Abdomen: Soft Extremities: No cyanosis, Other (2-3+ bilateral LE pitting edema) Skin: No breakdown Labs LABS DICATION Congestive Heart Failure 2D DIMENSIONS RVDd 2.9 (2.9-3.5cm) Left Atrium(2D) 4.3 (1.6-4.0cm) IVSd 1.2 (0.7-1.1cm) Aortic Root(2D) 3.0 (2.0-3.7cm) LVDd 4.9 (3.9-5.9cm) LVOT Diameter 1.8 (1.8-2.4cm) PWd 1.1 (0.7-1.1cm) LVDs 3.6 (2.5-4.0cm) FS (%) 26.2 % SV 57.6 ml LVEF(%) 51.2 (>50%) M-Mode DIMENSIONS Left Atrium(MM) 4.07 (2.5-4.0cm) Aortic Root 3.24 (2.2-3.7cm) Aortic Valve AoV Peak Cecil. 140.0cm/s AoV VTI 33.8cm AO Peak GR. 7.8mmHg LVOT Peak Cecil. 109.9cm/s AO Mean GR. 4mmHg VIOLA (VMAX) 1.98cm2 VIOLA (VTI) 2.00cm2 Mitral Valve MV E Velocity 128.4cm/s MV E Peak Gr. 10mmHg MV DECEL TIME 207ms MV A Velocity 91.2cm/s MV E Mean Gr. 3mmHg E/A Ratio 1.4 Pulmonary Valve PV Peak Velocity 118.7cm/s Tricuspid Valve TR P. Velocity 356cm/s RAP ESTIMATE 15mmHg TR Peak Gr. 51mmHg RVSP 66mmHg LEFT VENTRICLE The left ventricle is normal size. There is mild concentric left ventricular hypertrophy. Left ventricle systolic function is low normal. The Ejection Fraction is 50-55%. There is normal LV segmental wall motion. Transmitral Doppler flow pattern is Grade II-pseudonormal filling dynamics. RIGHT VENTRICLE The right ventricle is normal size. There is normal right ventricular wall thickness. The right ventricular systolic function is normal. ATRIA The left atrium is mildly dilated. The right atrium size is normal. The interatrial septum is intact with no evidence for an atrial septal defect or patent foramen ovale as noted on 2-D or Doppler imaging. AORTIC VALVE The aortic valve is calcified but opens well. The aortic valve is trileaflet. Doppler and Color Flow revealed trace aortic regurgitation. There is no significant aortic valvular stenosis. There is no aortic valvular vegetation. MITRAL VALVE The mitral valve is normal in structure and function. There is no evidence of mitral valve prolapse. There is no mitral valve stenosis. Doppler and Color-flow revealed mild mitral regurgitation. TRICUSPID VALVE The tricuspid valve is normal in structure and function. Doppler and Color Flow revealed mild tricuspid regurgitation. The PA pressure was estimated at 56 mmHg. There is no tricuspid valve prolapse or vegetation. There is no tricuspid valve stenosis. PULMONIC VALVE The pulmonary valve is normal in structure and function. Doppler and Color Flow revealed mild pulmonic valvular regurgitation. There is no pulmonic valvular stenosis. GREAT VESSELS The aortic root is normal in size. The ascending aorta is normal in size. The IVC is dilated and collapses <50% with inspiration. PERICARDIAL EFFUSION There is no evidence of significant pericardial effusion. Critical Notification Critical Value: No <Conclusion> The left ventricle is normal size. Left ventricle systolic function is low normal. The Ejection Fraction is 50-55%. There is mild concentric left ventricular hypertrophy. There is no significant aortic valvular stenosis. Doppler and Color Flow revealed trace aortic regurgitation. Doppler and Color-flow revealed mild mitral regurgitation. Doppler and Color Flow revealed mild tricuspid regurgitation. The PA pressure was estimated at 56 mmHg. Signed by : Rafiq Borrero MD Electronically Approved : 03/27/2019 15:11:00 DICTATED and SIGNED BY: RAFIQ BORRERO MD Examination: VENOUS LOWER EXT BILATERAL History: Lower extremity edema COMPARISON/CORRELATION: None FINDINGS: Bilateral lower extremity duplex venous ultrasound exam was performed. Grayscale, color Doppler, and spectral Doppler imaging was performed. Compression and augmentation was performed. The right common femoral vein, superficial femoral vein, popliteal vein, and greater saphenous vein are normal with no evidence of deep venous thrombus. Normal compressibility and augmentation is evident. The left common femoral vein, superficial femoral vein, popliteal vein, and greater saphenous vein are normal with no evidence of deep venous thrombus. Normal compressibility and augmentation is evident. Visualized calf veins bilaterally are unremarkable. IMPRESSION: Normal bilateral lower extremity duplex ultrasound exam. No evidence of deep venous thrombus involving the lower extremities. Electronically signed by: Dov Simeon MD (03/27/2019 4:43 PM) [facility] DICTATED and SIGNED BY: DOV SIMEON MD DATE: 03/27/19 1643 Laboratory Tests Test 03/27/19 11:29 03/27/19 14:45 03/27/19 16:10 03/27/19 20:38 Glucose (Fingerstick) 142 mg/dL (70-99) 136 mg/dL (70-99) 141 mg/dL (70-99) Urine Collection Type Unknown Urine Color Yellow Urine Clarity Clear Urine pH 5.5 Urine Specific [place] 1.015 Urine Protein >=300 mg/dL (NEG-TRACE) Urine Glucose (UA) Negative mg/dL (NEG) Urine Ketones (Stick) Negative mg/dL (NEG) Urine Blood Trace (NEG) Urine Nitrite Negative (NEG) Urine Bilirubin Negative (NEG) Urine Urobilinogen Dipstick 0.2 mg/dL (0.2 mg/dL) Urine Leukocyte Esterase Negative (NEG) Urine RBC 0 /HPF (0-2) Urine WBC 0 /HPF (0-4) Urine Bacteria 0 /HPF (0-FEW) Test 03/28/19 05:24 03/28/19 07:28 White Blood Count 7.7 x10^3/uL (4.0-11.0) Red Blood Count 2.63 x10^6/uL (4.30-5.70) Hemoglobin 7.1 g/dL (13.0-17.5) Hematocrit 21.6 % (39.0-53.0) Mean Corpuscular Volume 82 fL (79-100) Mean Corpuscular Hemoglobin 27 pg (25-35) Mean Corpuscular Hemoglobin Concent 33 g/dL (31-37) Red Cell Distribution Width 18.2 % (11.5-14.5) Platelet Count 121 x10^3/uL (140-400) Neutrophils (%) (Auto) 77 % (31-73) Lymphocytes (%) (Auto) 8 % (24-48) Monocytes (%) (Auto) 13 % (0-9) Eosinophils (%) (Auto) 2 % (0-3) Basophils (%) (Auto) 1 % (0-3) Neutrophils # (Auto) 5.9 x10^3/uL (1.8-7.7) Lymphocytes # (Auto) 0.6 x10^3/uL (1.0-4.8) Monocytes # (Auto) 1.0 x10^3/uL (0.0-1.1) Eosinophils # (Auto) 0.1 x10^3/uL (0.0-0.7) Basophils # (Auto) 0.0 x10^3/uL (0.0-0.2) Sodium Level 142 mmol/L (136-145) Potassium Level 4.0 mmol/L (3.5-5.1) Chloride Level 108 mmol/L (98-107) Carbon Dioxide Level 21 mmol/L (21-32) Anion Gap 13 (6-14) Blood Urea Nitrogen 70 mg/dL (8-26) Creatinine 5.5 mg/dL (0.7-1.3) Estimated GFR (Cockcroft-Gault) 12.8 Glucose Level 129 mg/dL (70-99) Calcium Level 7.8 mg/dL (8.5-10.1) Phosphorus Level 4.3 mg/dL (2.6-4.7) Albumin 2.8 g/dL (3.4-5.0) Glucose (Fingerstick) 128 mg/dL (70-99) Assessment and Plan Assessmemt and Plan Problems Medical Problems: (1) Acute on chronic kidney failure Status: Acute (2) Anemia Status: Acute (3) Fluid overload Status: Acute (4) Hypertension Status: Acute (5) Pulmonary edema Status: Acute Comment Review of Relevant I have reviewed the following items arlette (where applicable) has been applied. Labs Laboratory Tests Test 03/26/19 23:05 03/27/19 07:18 03/27/19 11:29 03/27/19 14:45 White Blood Count 8.8 x10^3/uL (4.0-11.0) Red Blood Count 2.76 x10^6/uL (4.30-5.70) Hemoglobin 7.5 g/dL (13.0-17.5) Hematocrit 22.8 % (39.0-53.0) Mean Corpuscular Volume 83 fL (79-100) Mean Corpuscular Hemoglobin 27 pg (25-35) Mean Corpuscular Hemoglobin Concent 33 g/dL (31-37) Red Cell Distribution Width 18.3 % (11.5-14.5) Platelet Count 122 x10^3/uL (140-400) Neutrophils (%) (Auto) 83 % (31-73) Lymphocytes (%) (Auto) 7 % (24-48) Monocytes (%) (Auto) 9 % (0-9) Eosinophils (%) (Auto) 0 % (0-3) Basophils (%) (Auto) 1 % (0-3) Neutrophils # (Auto) 7.3 x10^3/uL (1.8-7.7) Lymphocytes # (Auto) 0.6 x10^3/uL (1.0-4.8) Monocytes # (Auto) 0.8 x10^3/uL (0.0-1.1) Eosinophils # (Auto) 0.0 x10^3/uL (0.0-0.7) Basophils # (Auto) 0.1 x10^3/uL (0.0-0.2) Sodium Level 143 mmol/L (136-145) Potassium Level 4.3 mmol/L (3.5-5.1) Chloride Level 108 mmol/L (98-107) Carbon Dioxide Level 21 mmol/L (21-32) Anion Gap 14 (6-14) Blood Urea Nitrogen 76 mg/dL (8-26) Creatinine 5.5 mg/dL (0.7-1.3) Estimated GFR (Cockcroft-Gault) 10.6 BUN/Creatinine Ratio 14 (6-20) Glucose Level 159 mg/dL (70-99) Hemoglobin A1c 6.2 % (4.8-5.6) Calcium Level 7.9 mg/dL (8.5-10.1) Total Bilirubin 0.5 mg/dL (0.2-1.0) Aspartate Amino Transf (AST/SGOT) 27 U/L (15-37) Alanine Aminotransferase (ALT/SGPT) 70 U/L (16-63) Alkaline Phosphatase 105 U/L (46-116) Total Protein 7.1 g/dL (6.4-8.2) Albumin 3.2 g/dL (3.4-5.0) Albumin/Globulin Ratio 0.8 (1.0-1.7) Triglycerides Level 58 mg/dL (0-150) Cholesterol Level 123 mg/dL (0-200) LDL Cholesterol, Calculated 42 mg/dL (0-100) VLDL Cholesterol, Calculated 12 mg/dL (0-40) Non-HDL Cholesterol Calculated 54 mg/dL (0-129) HDL Cholesterol 69 mg/dL (40-60) Cholesterol/HDL Ratio 1.8 Lipase 243 U/L (73-393) Thyroid Stimulating Hormone (TSH) 2.293 uIU/mL (0.358-3.74) Glucose (Fingerstick) 140 mg/dL (70-99) 142 mg/dL (70-99) Urine Collection Type Unknown Urine Color Yellow Urine Clarity Clear Urine pH 5.5 Urine Specific [place] 1.015 Urine Protein >=300 mg/dL (NEG-TRACE) Urine Glucose (UA) Negative mg/dL (NEG) Urine Ketones (Stick) Negative mg/dL (NEG) Urine Blood Trace (NEG) Urine Nitrite Negative (NEG) Urine Bilirubin Negative (NEG) Urine Urobilinogen Dipstick 0.2 mg/dL (0.2 mg/dL) Urine Leukocyte Esterase Negative (NEG) Urine RBC 0 /HPF (0-2) Urine WBC 0 /HPF (0-4) Urine Bacteria 0 /HPF (0-FEW) Test 03/27/19 16:10 03/27/19 20:38 03/28/19 05:24 03/28/19 07:28 Glucose (Fingerstick) 136 mg/dL (70-99) 141 mg/dL (70-99) 128 mg/dL (70-99) White Blood Count 7.7 x10^3/uL (4.0-11.0) Red Blood Count 2.63 x10^6/uL (4.30-5.70) Hemoglobin 7.1 g/dL (13.0-17.5) Hematocrit 21.6 % (39.0-53.0) Mean Corpuscular Volume 82 fL (79-100) Mean Corpuscular Hemoglobin 27 pg (25-35) Mean Corpuscular Hemoglobin Concent 33 g/dL (31-37) Red Cell Distribution Width 18.2 % (11.5-14.5) Platelet Count 121 x10^3/uL (140-400) Neutrophils (%) (Auto) 77 % (31-73) Lymphocytes (%) (Auto) 8 % (24-48) Monocytes (%) (Auto) 13 % (0-9) Eosinophils (%) (Auto) 2 % (0-3) Basophils (%) (Auto) 1 % (0-3) Neutrophils # (Auto) 5.9 x10^3/uL (1.8-7.7) Lymphocytes # (Auto) 0.6 x10^3/uL (1.0-4.8) Monocytes # (Auto) 1.0 x10^3/uL (0.0-1.1) Eosinophils # (Auto) 0.1 x10^3/uL (0.0-0.7) Basophils # (Auto) 0.0 x10^3/uL (0.0-0.2) Sodium Level 142 mmol/L (136-145) Potassium Level 4.0 mmol/L (3.5-5.1) Chloride Level 108 mmol/L (98-107) Carbon Dioxide Level 21 mmol/L (21-32) Anion Gap 13 (6-14) Blood Urea Nitrogen 70 mg/dL (8-26) Creatinine 5.5 mg/dL (0.7-1.3) Estimated GFR (Cockcroft-Gault) 12.8 Glucose Level 129 mg/dL (70-99) Calcium Level 7.8 mg/dL (8.5-10.1) Phosphorus Level 4.3 mg/dL (2.6-4.7) Albumin 2.8 g/dL (3.4-5.0) Laboratory Tests Test 03/27/19 11:29 03/27/19 14:45 03/27/19 16:10 03/27/19 20:38 Glucose (Fingerstick) 142 mg/dL (70-99) 136 mg/dL (70-99) 141 mg/dL (70-99) Urine Collection Type Unknown Urine Color Yellow Urine Clarity Clear Urine pH 5.5 Urine Specific [place] 1.015 Urine Protein >=300 mg/dL (NEG-TRACE) Urine Glucose (UA) Negative mg/dL (NEG) Urine Ketones (Stick) Negative mg/dL (NEG) Urine Blood Trace (NEG) Urine Nitrite Negative (NEG) Urine Bilirubin Negative (NEG) Urine Urobilinogen Dipstick 0.2 mg/dL (0.2 mg/dL) Urine Leukocyte Esterase Negative (NEG) Urine RBC 0 /HPF (0-2) Urine WBC 0 /HPF (0-4) Urine Bacteria 0 /HPF (0-FEW) Test 03/28/19 05:24 03/28/19 07:28 White Blood Count 7.7 x10^3/uL (4.0-11.0) Red Blood Count 2.63 x10^6/uL (4.30-5.70) Hemoglobin 7.1 g/dL (13.0-17.5) Hematocrit 21.6 % (39.0-53.0) Mean Corpuscular Volume 82 fL (79-100) Mean Corpuscular Hemoglobin 27 pg (25-35) Mean Corpuscular Hemoglobin Concent 33 g/dL (31-37) Red Cell Distribution Width 18.2 % (11.5-14.5) Platelet Count 121 x10^3/uL (140-400) Neutrophils (%) (Auto) 77 % (31-73) Lymphocytes (%) (Auto) 8 % (24-48) Monocytes (%) (Auto) 13 % (0-9) Eosinophils (%) (Auto) 2 % (0-3) Basophils (%) (Auto) 1 % (0-3) Neutrophils # (Auto) 5.9 x10^3/uL (1.8-7.7) Lymphocytes # (Auto) 0.6 x10^3/uL (1.0-4.8) Monocytes # (Auto) 1.0 x10^3/uL (0.0-1.1) Eosinophils # (Auto) 0.1 x10^3/uL (0.0-0.7) Basophils # (Auto) 0.0 x10^3/uL (0.0-0.2) Sodium Level 142 mmol/L (136-145) Potassium Level 4.0 mmol/L (3.5-5.1) Chloride Level 108 mmol/L (98-107) Carbon Dioxide Level 21 mmol/L (21-32) Anion Gap 13 (6-14) Blood Urea Nitrogen 70 mg/dL (8-26) Creatinine 5.5 mg/dL (0.7-1.3) Estimated GFR (Cockcroft-Gault) 12.8 Glucose Level 129 mg/dL (70-99) Calcium Level 7.8 mg/dL (8.5-10.1) Phosphorus Level 4.3 mg/dL (2.6-4.7) Albumin 2.8 g/dL (3.4-5.0) Glucose (Fingerstick) 128 mg/dL (70-99) Medications Current Medications Ondansetron HCl (Zofran) 4 mg STK-MED ONCE .ROUTE ; Start 03/26/19 at 23:08; Stop 03/26/19 at 23:31; Status DC Meclizine HCl (Antivert) 50 mg 1X ONCE PO Last administered on 03/27/19at 00:45; Start 03/27/19 at 00:45; Stop 03/27/19 at 00:46; Status DC Ondansetron HCl (Zofran) 4 mg PRN Q8HRS PRN IV NAUSEA/VOMITING Last administered on 03/27/19at 03:30; Start 03/27/19 at 01:15; Stop 03/28/19 at 01:14; Status DC Furosemide (Lasix) 40 mg 1X ONCE IVP Last administered on 03/27/19at 01:27; Start 03/27/19 at 01:30; Stop 03/27/19 at 01:31; Status DC Influenza Virus Vaccine Quadrival (Afluria Quad 2019-20 (3yr Up) Syringe) 0.5 ml ONCE ONCE VAX IM ; Start 03/27/19 at 08:30; Stop 03/27/19 at 08:31; Status DC Atorvastatin Calcium (Lipitor) 20 mg HS PO Last administered on 03/27/19at 21:34; Start 03/27/19 at 21:00 Cyanocobalamin (Vitamin B-12) 1,000 mcg DAILY PO Last administered on 03/27/19at 12:51; Start 03/27/19 at 12:00 Ferrous Sulfate (Feosol) 325 mg DAILY08 PO Last administered on 03/27/19at 12:51; Start 03/27/19 at 12:00 Hydralazine HCl (Apresoline) 50 mg TID PO Last administered on 03/27/19at 21:34; Start 03/27/19 at 14:00 Vitamin B Complex/ Vitamin C (Tara-Adamaris) 1 tab DAILY PO Last administered on 03/27/19at 12:56; Start 03/27/19 at 12:00 Non-Formulary Medication (Eplerenone ) 25 mg DAILY PO ; Start 03/28/19 at 09:00; Status UNV Insulin Glargine (Lantus Syringe) 60 unit DAILY SQ ; Start 03/27/19 at 12:00 Multivitamins (Thera M Plus) 1 tab DAILY PO ; Start 03/28/19 at 09:00 Metoprolol Tartrate (Lopressor) 50 mg BID PO Last administered on 03/27/19at 21:34; Start 03/27/19 at 12:00 Terazosin HCl (Hytrin) 10 mg DAILY PO Last administered on 03/27/19at 12:51; Start 03/27/19 at 12:00 Heparin Sodium (Porcine) (Heparin Sodium) 5,000 unit Q8HRS SQ ; Start 03/27/19 at 14:00 Amlodipine Besylate (Norvasc) 10 mg DAILY PO ; Start 03/27/19 at 14:15 Active Scripts Active Reported Folic Acid-Vit B6-Vit B12 Tab (Cyanocobalamin/Fa/Pyridoxine) 1 Each Tablet 1 Each PO DAILY Vitamin B-12 (Cyanocobalamin (Vitamin B-12)) 1,000 Mcg Tablet 1 Tab PO DAILY 30 Days Ferrous Sulfate 325 Mg Tablet 1 Tab PO DAILY Multivitamins (Multivitamin) 1 Each Tablet 1 Tab PO DAILY Terazosin Hcl 10 Mg Capsule 1 Cap PO DAILY Levemir (Insulin Detemir) 100 Unit/1 Ml Vial 60 Unit SQ DAILY Torsemide 20 Mg Tablet 20 Mg PO BID Hydralazine Hcl 50 Mg Tablet 1 Tab PO TID Bystolic (Nebivolol Hcl) 20 Mg Tablet 20 Mg PO DAILY Losartan Potassium (Losartan Potassium) 25 Mg Tablet 25 Mg PO DAILY Atorvastatin Calcium 20 Mg Tablet 20 Mg PO HS Eplerenone 25 Mg Tablet 25 Mg PO DAILY Vitals/I & O Vital Sign - Last 24 Hours 03/27/19 03/27/19 03/27/19 03/27/19 10:47 12:51 12:51 15:00 Temp 97.6 97.6 Pulse 68 68 68 68 Resp 18 B/P (MAP) 175/77 (109) 175/77 175/77 175/77 Pulse Ox 96 O2 Delivery Room Air 03/27/19 03/27/19 03/27/19 03/27/19 15:11 19:27 20:24 21:34 Temp 98.1 98.0 98.1 98.0 Pulse 68 74 74 Resp 18 20 B/P (MAP) 178/79 (112) 173/82 (112) 173/82 Pulse Ox 100 93 O2 Delivery Room Air Room Air Room Air 03/27/19 03/27/19 03/28/19 03/28/19 21:34 23:43 03:17 07:00 Temp 99.0 98.7 99.3 99.0 98.7 99.3 Pulse 74 70 75 74 Resp 20 16 B/P (MAP) 173/82 176/87 (116) 166/65 (98) 174/74 (107) Pulse Ox 92 92 94 O2 Delivery Room Air Room Air Room Air Intake and Output 03/27/19 03/27/19 03/28/19 14:59 22:59 06:59 Intake Total 840 ml 250 ml 350 ml Output Total 850 ml 400 ml 200 ml Balance -10 ml -150 ml 150 ml YOLY WHITING MD Mar 28, 2019 08:45
[2019-03-28] MEDS ORDERED: MULTIVITAMIN with MINERAL TABLET. PO SCH (09:00)
[2019-03-28] MEDS: amLODIPine BESYLATE 10 MG TABLET PO SCH (09:00)
[2019-03-28] MEDS ORDERED: EPLERENONE 25 MG PO SCH (09:00)
[2019-03-28] MEDS: INSULIN GLARGINE SYRINGE. SQ SCH (09:00)
--- NOTE | 2019-03-28 10:20 | PDOC3 ---
Discharge Summary Date of Admission: Mar 27, 2019 Date of Discharge: Mar 28, 2019 Follow-Up: 3-5 days Admitting Diagnosis comment: DISCHARGE DX DISCHARGE DX Impression: Fluid overload? suspect acute volume depletion from GI LOSS, vomiting obesity ACUTE SEVERE RENAL FAILURE on chronic renal failure Pulmonary edema? anemia hx hypertension possible food poisoning diabetes hx plan admit tele nephrology consult OK WITH D/C SINCE REFUSING DIALYSIS AMA dvt prophylaxis, heparin sq home meds, hold ARB echo Left ventricle systolic function is low normal. Ejection Fraction is 50-55%. PA pressure was estimated at 56 mmHg. cardiology consult accuchecks PT REFUSING DIALYSIS AT THIS TIME AMA 33 min pt exam, chart review D/C PLANNING TIME , > 50% of time spent with exam, chart review, pt care coordination Vitals Vitals Vital Signs Date Time Temp Pulse Resp B/P (MAP) Pulse Ox O2 Delivery O2 Flow Rate FiO2 03/28/19 07:00 99.3 74 16 174/74 (107) 94 Room Air 99.3 Physical Exam General: Alert, Oriented X3, Cooperative, No acute distress Heart: Regular rate (SR), Normal S1, Normal S2, Other (2/6 systolic murmur to LLS border) Abdomen: Soft Extremities: No cyanosis, Other (2-3+ bilateral LE pitting edema) Skin: No breakdown Labs LABS DICATION Congestive Heart Failure 2D DIMENSIONS RVDd 2.9 (2.9-3.5cm) Left Atrium(2D) 4.3 (1.6-4.0cm) IVSd 1.2 (0.7-1.1cm) Aortic Root(2D) 3.0 (2.0-3.7cm) LVDd 4.9 (3.9-5.9cm) LVOT Diameter 1.8 (1.8-2.4cm) PWd 1.1 (0.7-1.1cm) LVDs 3.6 (2.5-4.0cm) FS (%) 26.2 % SV 57.6 ml LVEF(%) 51.2 (>50%) M-Mode DIMENSIONS Left Atrium(MM) 4.07 (2.5-4.0cm) Aortic Root 3.24 (2.2-3.7cm) Aortic Valve AoV Peak Cecil. 140.0cm/s AoV VTI 33.8cm AO Peak GR. 7.8mmHg LVOT Peak Cecil. 109.9cm/s AO Mean GR. 4mmHg VIOLA (VMAX) 1.98cm2 VIOLA (VTI) 2.00cm2 Mitral Valve MV E Velocity 128.4cm/s MV E Peak Gr. 10mmHg MV DECEL TIME 207ms MV A Velocity 91.2cm/s MV E Mean Gr. 3mmHg E/A Ratio 1.4 Pulmonary Valve PV Peak Velocity 118.7cm/s Tricuspid Valve TR P. Velocity 356cm/s RAP ESTIMATE 15mmHg TR Peak Gr. 51mmHg RVSP 66mmHg LEFT VENTRICLE The left ventricle is normal size. There is mild concentric left ventricular hypertrophy. Left ventricle systolic function is low normal. The Ejection Fraction is 50-55%. There is normal LV segmental wall motion. Transmitral Doppler flow pattern is Grade II-pseudonormal filling dynamics. RIGHT VENTRICLE The right ventricle is normal size. There is normal right ventricular wall thickness. The right ventricular systolic function is normal. ATRIA The left atrium is mildly dilated. The right atrium size is normal. The interatrial septum is intact with no evidence for an atrial septal defect or patent foramen ovale as noted on 2-D or Doppler imaging. AORTIC VALVE The aortic valve is calcified but opens well. The aortic valve is trileaflet. Doppler and Color Flow revealed trace aortic regurgitation. There is no significant aortic valvular stenosis. There is no aortic valvular vegetation. MITRAL VALVE The mitral valve is normal in structure and function. There is no evidence of mitral valve prolapse. There is no mitral valve stenosis. Doppler and Color-flow revealed mild mitral regurgitation. TRICUSPID VALVE The tricuspid valve is normal in structure and function. Doppler and Color Flow revealed mild tricuspid regurgitation. The PA pressure was estimated at 56 mmHg. There is no tricuspid valve prolapse or vegetation. There is no tricuspid valve stenosis. PULMONIC VALVE The pulmonary valve is normal in structure and function. Doppler and Color Flow revealed mild pulmonic valvular regurgitation. There is no pulmonic valvular stenosis. GREAT VESSELS The aortic root is normal in size. The ascending aorta is normal in size. The IVC is dilated and collapses <50% with inspiration. PERICARDIAL EFFUSION There is no evidence of significant pericardial effusion. Critical Notification Critical Value: No <Conclusion> The left ventricle is normal size. Left ventricle systolic function is low normal. The Ejection Fraction is 50-55%. There is mild concentric left ventricular hypertrophy. There is no significant aortic valvular stenosis. Doppler and Color Flow revealed trace aortic regurgitation. Doppler and Color-flow revealed mild mitral regurgitation. Doppler and Color Flow revealed mild tricuspid regurgitation. The PA pressure was estimated at 56 mmHg. Signed by : Rafiq Borrero MD Electronically Approved : 03/27/2019 15:11:00 DICTATED and SIGNED BY: RAFIQ BORRERO MD Examination: VENOUS LOWER EXT BILATERAL History: Lower extremity edema COMPARISON/CORRELATION: None FINDINGS: Bilateral lower extremity duplex venous ultrasound exam was performed. Grayscale, color Doppler, and spectral Doppler imaging was performed. Compression and augmentation was performed. The right common femoral vein, superficial femoral vein, popliteal vein, and greater saphenous vein are normal with no evidence of deep venous thrombus. Normal compressibility and augmentation is evident. The left common femoral vein, superficial femoral vein, popliteal vein, and greater saphenous vein are normal with no evidence of deep venous thrombus. Normal compressibility and augmentation is evident. Visualized calf veins bilaterally are unremarkable. IMPRESSION: Normal bilateral lower extremity duplex ultrasound exam. No evidence of deep venous thrombus involving the lower extremities. Electronically signed by: Dov Ríos MD (03/27/2019 4:43 PM) [facility] FINAL DIAGNOSIS Problems Medical Problems: (1) Acute on chronic kidney failure Status: Acute (2) Anemia Status: Acute (3) Fluid overload Status: Acute (4) Hypertension Status: Acute (5) Pulmonary edema Status: Acute Brief Hospital Course Mr. Sandoval is a 63 old [sex] who presented with [ ] CONDITION AT DISCHARGE: Comment (GUARDED PROGNOSIS) Discharge Medications Current Medications Ondansetron HCl (Zofran) 4 mg STK-MED ONCE .ROUTE ; Start 03/26/19 at 23:08; Stop 03/26/19 at 23:31; Status DC Meclizine HCl (Antivert) 50 mg 1X ONCE PO Last administered on 03/27/19at 00:45; Start 03/27/19 at 00:45; Stop 03/27/19 at 00:46; Status DC Ondansetron HCl (Zofran) 4 mg PRN Q8HRS PRN IV NAUSEA/VOMITING Last administered on 03/27/19 03:30; Start 03/27/19 at 01:15; Stop 03/28/19 at 01:14; Status DC Furosemide (Lasix) 40 mg 1X ONCE IVP Last administered on 03/27/19at 01:27; Start 03/27/19 at 01:30; Stop 03/27/19 at 01:31; Status DC Influenza Virus Vaccine Quadrival (Afluria Quad 2019-20 (3yr Up) Syringe) 0.5 ml ONCE ONCE VAX IM ; Start 03/27/19 at 08:30; Stop 03/27/19 at 08:31; Status DC Atorvastatin Calcium (Lipitor) 20 mg HS PO Last administered on 03/27/19 21:34; Start 03/27/19 at 21:00 Cyanocobalamin (Vitamin B-12) 1,000 mcg DAILY PO Last administered on 03/27/19at 12:51; Start 03/27/19 at 12:00 Ferrous Sulfate (Feosol) 325 mg DAILY08 PO Last administered on 03/27/19 12:51; Start 03/27/19 at 12:00 Hydralazine HCl (Apresoline) 50 mg TID PO Last administered on 03/27/19 21:34; Start 03/27/19 at 14:00 Vitamin B Complex/ Vitamin C (Tara-Adamaris) 1 tab DAILY PO Last administered on 03/27/19at 12:56; Start 03/27/19 at 12:00 Non-Formulary Medication (Eplerenone ) 25 mg DAILY PO ; Start 03/28/19 at 09:00; Status UNV Insulin Glargine (Lantus Syringe) 60 unit DAILY SQ ; Start 03/27/19 at 12:00 Multivitamins (Thera M Plus) 1 tab DAILY PO ; Start 03/28/19 at 09:00 Metoprolol Tartrate (Lopressor) 50 mg BID PO Last administered on 03/27/19 21:34; Start 03/27/19 at 12:00 Terazosin HCl (Hytrin) 10 mg DAILY PO Last administered on 03/27/19at 12:51; Start 03/27/19 at 12:00 Heparin Sodium (Porcine) (Heparin Sodium) 5,000 unit Q8HRS SQ ; Start 03/27/19 at 14:00 Amlodipine Besylate (Norvasc) 10 mg DAILY PO ; Start 03/27/19 at 14:15 Active Scripts Active Reported Folic Acid-Vit B6-Vit B12 Tab (Cyanocobalamin/Fa/Pyridoxine) 1 Each Tablet 1 Each PO DAILY Vitamin B-12 (Cyanocobalamin (Vitamin B-12)) 1,000 Mcg Tablet 1 Tab PO DAILY 30 Days Ferrous Sulfate 325 Mg Tablet 1 Tab PO DAILY Multivitamins (Multivitamin) 1 Each Tablet 1 Tab PO DAILY Terazosin Hcl 10 Mg Capsule 1 Cap PO DAILY Levemir (Insulin Detemir) 100 Unit/1 Ml Vial 60 Unit SQ DAILY Torsemide 20 Mg Tablet 20 Mg PO BID Hydralazine Hcl 50 Mg Tablet 1 Tab PO TID Bystolic (Nebivolol Hcl) 20 Mg Tablet 20 Mg PO DAILY Losartan Potassium (Losartan Potassium) 25 Mg Tablet 25 Mg PO DAILY Atorvastatin Calcium 20 Mg Tablet 20 Mg PO HS Eplerenone 25 Mg Tablet 25 Mg PO DAILY Vital Signs Vital Signs Date Time Temp Pulse Resp B/P (MAP) Pulse Ox O2 Delivery O2 Flow Rate FiO2 03/28/19 07:00 99.3 74 16 174/74 (107) 94 Room Air 99.3 Labs Laboratory Tests Test 03/26/19 23:05 03/27/19 07:18 03/27/19 11:29 03/27/19 14:45 White Blood Count 8.8 x10^3/uL (4.0-11.0) Red Blood Count 2.76 x10^6/uL (4.30-5.70) Hemoglobin 7.5 g/dL (13.0-17.5) Hematocrit 22.8 % (39.0-53.0) Mean Corpuscular Volume 83 fL (79-100) Mean Corpuscular Hemoglobin 27 pg (25-35) Mean Corpuscular Hemoglobin Concent 33 g/dL (31-37) Red Cell Distribution Width 18.3 % (11.5-14.5) Platelet Count 122 x10^3/uL (140-400) Neutrophils (%) (Auto) 83 % (31-73) Lymphocytes (%) (Auto) 7 % (24-48) Monocytes (%) (Auto) 9 % (0-9) Eosinophils (%) (Auto) 0 % (0-3) Basophils (%) (Auto) 1 % (0-3) Neutrophils # (Auto) 7.3 x10^3/uL (1.8-7.7) Lymphocytes # (Auto) 0.6 x10^3/uL (1.0-4.8) Monocytes # (Auto) 0.8 x10^3/uL (0.0-1.1) Eosinophils # (Auto) 0.0 x10^3/uL (0.0-0.7) Basophils # (Auto) 0.1 x10^3/uL (0.0-0.2) Sodium Level 143 mmol/L (136-145) Potassium Level 4.3 mmol/L (3.5-5.1) Chloride Level 108 mmol/L (98-107) Carbon Dioxide Level 21 mmol/L (21-32) Anion Gap 14 (6-14) Blood Urea Nitrogen 76 mg/dL (8-26) Creatinine 5.5 mg/dL (0.7-1.3) Estimated GFR (Cockcroft-Gault) 10.6 BUN/Creatinine Ratio 14 (6-20) Glucose Level 159 mg/dL (70-99) Hemoglobin A1c 6.2 % (4.8-5.6) Calcium Level 7.9 mg/dL (8.5-10.1) Total Bilirubin 0.5 mg/dL (0.2-1.0) Aspartate Amino Transf (AST/SGOT) 27 U/L (15-37) Alanine Aminotransferase (ALT/SGPT) 70 U/L (16-63) Alkaline Phosphatase 105 U/L (46-116) Total Protein 7.1 g/dL (6.4-8.2) Albumin 3.2 g/dL (3.4-5.0) Albumin/Globulin Ratio 0.8 (1.0-1.7) Triglycerides Level 58 mg/dL (0-150) Cholesterol Level 123 mg/dL (0-200) LDL Cholesterol, Calculated 42 mg/dL (0-100) VLDL Cholesterol, Calculated 12 mg/dL (0-40) Non-HDL Cholesterol Calculated 54 mg/dL (0-129) HDL Cholesterol 69 mg/dL (40-60) Cholesterol/HDL Ratio 1.8 Lipase 243 U/L (73-393) Thyroid Stimulating Hormone (TSH) 2.293 uIU/mL (0.358-3.74) Glucose (Fingerstick) 140 mg/dL (70-99) 142 mg/dL (70-99) Urine Collection Type Unknown Urine Color Yellow Urine Clarity Clear Urine pH 5.5 Urine Specific [place] 1.015 Urine Protein >=300 mg/dL (NEG-TRACE) Urine Glucose (UA) Negative mg/dL (NEG) Urine Ketones (Stick) Negative mg/dL (NEG) Urine Blood Trace (NEG) Urine Nitrite Negative (NEG) Urine Bilirubin Negative (NEG) Urine Urobilinogen Dipstick 0.2 mg/dL (0.2 mg/dL) Urine Leukocyte Esterase Negative (NEG) Urine RBC 0 /HPF (0-2) Urine WBC 0 /HPF (0-4) Urine Bacteria 0 /HPF (0-FEW) Test 03/27/19 16:10 03/27/19 20:38 03/28/19 05:24 03/28/19 07:28 Glucose (Fingerstick) 136 mg/dL (70-99) 141 mg/dL (70-99) 128 mg/dL (70-99) White Blood Count 7.7 x10^3/uL (4.0-11.0) Red Blood Count 2.63 x10^6/uL (4.30-5.70) Hemoglobin 7.1 g/dL (13.0-17.5) Hematocrit 21.6 % (39.0-53.0) Mean Corpuscular Volume 82 fL (79-100) Mean Corpuscular Hemoglobin 27 pg (25-35) Mean Corpuscular Hemoglobin Concent 33 g/dL (31-37) Red Cell Distribution Width 18.2 % (11.5-14.5) Platelet Count 121 x10^3/uL (140-400) Neutrophils (%) (Auto) 77 % (31-73) Lymphocytes (%) (Auto) 8 % (24-48) Monocytes (%) (Auto) 13 % (0-9) Eosinophils (%) (Auto) 2 % (0-3) Basophils (%) (Auto) 1 % (0-3) Neutrophils # (Auto) 5.9 x10^3/uL (1.8-7.7) Lymphocytes # (Auto) 0.6 x10^3/uL (1.0-4.8) Monocytes # (Auto) 1.0 x10^3/uL (0.0-1.1) Eosinophils # (Auto) 0.1 x10^3/uL (0.0-0.7) Basophils # (Auto) 0.0 x10^3/uL (0.0-0.2) Sodium Level 142 mmol/L (136-145) Potassium Level 4.0 mmol/L (3.5-5.1) Chloride Level 108 mmol/L (98-107) Carbon Dioxide Level 21 mmol/L (21-32) Anion Gap 13 (6-14) Blood Urea Nitrogen 70 mg/dL (8-26) Creatinine 5.5 mg/dL (0.7-1.3) Estimated GFR (Cockcroft-Gault) 12.8 Glucose Level 129 mg/dL (70-99) Calcium Level 7.8 mg/dL (8.5-10.1) Phosphorus Level 4.3 mg/dL (2.6-4.7) Albumin 2.8 g/dL (3.4-5.0) Laboratory Tests Test 03/27/19 11:29 03/27/19 14:45 03/27/19 16:10 03/27/19 20:38 Glucose (Fingerstick) 142 mg/dL (70-99) 136 mg/dL (70-99) 141 mg/dL (70-99) Urine Collection Type Unknown Urine Color Yellow Urine Clarity Clear Urine pH 5.5 Urine Specific [place] 1.015 Urine Protein >=300 mg/dL (NEG-TRACE) Urine Glucose (UA) Negative mg/dL (NEG) Urine Ketones (Stick) Negative mg/dL (NEG) Urine Blood Trace (NEG) Urine Nitrite Negative (NEG) Urine Bilirubin Negative (NEG) Urine Urobilinogen Dipstick 0.2 mg/dL (0.2 mg/dL) Urine Leukocyte Esterase Negative (NEG) Urine RBC 0 /HPF (0-2) Urine WBC 0 /HPF (0-4) Urine Bacteria 0 /HPF (0-FEW) Test 03/28/19 05:24 03/28/19 07:28 White Blood Count 7.7 x10^3/uL (4.0-11.0) Red Blood Count 2.63 x10^6/uL (4.30-5.70) Hemoglobin 7.1 g/dL (13.0-17.5) Hematocrit 21.6 % (39.0-53.0) Mean Corpuscular Volume 82 fL (79-100) Mean Corpuscular Hemoglobin 27 pg (25-35) Mean Corpuscular Hemoglobin Concent 33 g/dL (31-37) Red Cell Distribution Width 18.2 % (11.5-14.5) Platelet Count 121 x10^3/uL (140-400) Neutrophils (%) (Auto) 77 % (31-73) Lymphocytes (%) (Auto) 8 % (24-48) Monocytes (%) (Auto) 13 % (0-9) Eosinophils (%) (Auto) 2 % (0-3) Basophils (%) (Auto) 1 % (0-3) Neutrophils # (Auto) 5.9 x10^3/uL (1.8-7.7) Lymphocytes # (Auto) 0.6 x10^3/uL (1.0-4.8) Monocytes # (Auto) 1.0 x10^3/uL (0.0-1.1) Eosinophils # (Auto) 0.1 x10^3/uL (0.0-0.7) Basophils # (Auto) 0.0 x10^3/uL (0.0-0.2) Sodium Level 142 mmol/L (136-145) Potassium Level 4.0 mmol/L (3.5-5.1) Chloride Level 108 mmol/L (98-107) Carbon Dioxide Level 21 mmol/L (21-32) Anion Gap 13 (6-14) Blood Urea Nitrogen 70 mg/dL (8-26) Creatinine 5.5 mg/dL (0.7-1.3) Estimated GFR (Cockcroft-Gault) 12.8 Glucose Level 129 mg/dL (70-99) Calcium Level 7.8 mg/dL (8.5-10.1) Phosphorus Level 4.3 mg/dL (2.6-4.7) Albumin 2.8 g/dL (3.4-5.0) Glucose (Fingerstick) 128 mg/dL (70-99) Allergies Allergies Coded Allergies Type Severity Reaction Last Updated Verified Penicillins Allergy Intermediate 03/27/19 Yes Disposition/Orders: D/C to Home YOLY WHITING MD Mar 28, 2019 10:20
[2019-03-28] MEDS ORDERED: AMLO10TA8 PO (10:22)
--- NOTE | 2019-03-28 10:22 | DISCH ---
DISCHARGE INSTRUCTIONS Condition on Discharge Condition on Discharge: Guarded Activity After Discharge Activity Instructions for Disc: Activity as tolerated Lifting Instructions after Dis: No heavy lifting, No pulling or pushing Driving Instructions after Dis: Do not drive, Do not drive today Diet after Discharge Diet after Discharge: Renal Dialysis Checks after Discharge Checks after discharge: Check blood press - daily Contacting the [facility] after DC Call your doctor for: If your condition worsens YOLY WHITING MD Mar 28, 2019 10:22
[2019-03-28 11:07] VITALS: BP 172/77
--- NOTE | 2019-03-28 11:24 | PDOC ---
SUBJECTIVE ROS No N/V, Reports good appetite , refusing to initiate Dialysis , reports goos UOP, No CP, SOB , Denies LE edema Wants to go back to Dr. Hudson for further follow up . OBJECTIVE Vital Signs Vital Signs Date Time Temp Pulse Resp B/P (MAP) Pulse Ox O2 Delivery O2 Flow Rate FiO2 03/28/19 11:07 99.6 77 18 172/77 (108) 94 Room Air 99.6 I & 0 Intake and Output 03/28/19 06:59 Intake Total 1440 ml Output Total 1450 ml Balance -10 ml Intake Oral 1440 ml Output Urine Total 1450 ml PHYSICAL EXAM Physical Exam GEN: NAD HEEN: OM moist , on RA NECK: Supple CVS: RRR, No rub RESP: CTA Bilat, No Acc. 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 Cr 3 to 4.5 at his baseline for many years Follows with Dr. Araujo (Escalation Engineer) E-Lytes and acid base stable Anemia- Chronic Baseline per Pt is 8.0 On PO Fe, was advised IV Fe which Pt refused last Colonoscopy HTN- BP Very high Non compliance with meds , stopped taking Torsemise on his own approx 7-8 days back Continue Home Antihypertensives except Diuretics Shortness of Breath- Mild at presentaion, recd IV Lasix in ER Currently asymptomatic , recommend holding diuretics DM per primary Discussed at great length with Pt and RN COMMENT/RELEVANT DATA Meds Current Medications Medications (Trade) Dose Ordered Sig/Tiffani Start Time Stop Time Status Last Admin Dose Admin Amlodipine Besylate (Norvasc) 10 mg DAILY 03/27/19 14:15 Atorvastatin Calcium (Lipitor) 20 mg HS 03/27/19 21:00 03/27/19 21:34 20 MG Cyanocobalamin (Vitamin B-12) 1,000 mcg DAILY 03/27/19 12:00 03/27/19 12:51 1,000 MCG Ferrous Sulfate (Feosol) 325 mg DAILY08 03/27/19 12:00 03/27/19 12:51 325 MG Furosemide (Lasix) 40 mg 1X ONCE 03/27/19 01:30 03/27/19 01:31 DC 03/27/19 01:27 40 MG Heparin Sodium (Porcine) (Heparin Sodium) 5,000 unit Q8HRS 03/27/19 14:00 Hydralazine HCl (Apresoline) 25 mg TID 03/28/19 14:00 Influenza Virus Vaccine Quadrival (Afluria Quad 2019-20 (3yr Up) Syringe) 0.5 ml ONCE ONCE 03/27/19 08:30 03/27/19 08:31 DC Insulin Glargine (Lantus Syringe) 60 unit DAILY 03/27/19 12:00 Meclizine HCl (Antivert) 50 mg 1X ONCE 03/27/19 00:45 03/27/19 00:46 DC 03/27/19 00:45 50 MG Metoprolol Tartrate (Lopressor) 50 mg BID 03/27/19 12:00 03/27/19 21:34 50 MG Multivitamins (Thera M Plus) 1 tab DAILY 03/28/19 09:00 Non-Formulary Medication (Eplerenone ) 25 mg DAILY 03/28/19 09:00 UNV Ondansetron HCl (Zofran) 4 mg PRN Q8HRS PRN 03/27/19 01:15 03/28/19 01:14 DC 03/27/19 03:30 4 MG Terazosin HCl (Hytrin) 10 mg DAILY 03/27/19 12:00 03/27/19 12:51 10 MG Vitamin B Complex/ Vitamin C (Tara-Adamaris) 1 tab DAILY 03/27/19 12:00 03/27/19 12:56 1 TAB Lab Laboratory Tests Test 03/27/19 11:29 03/27/19 14:45 03/27/19 16:10 03/27/19 20:38 Glucose (Fingerstick) 142 mg/dL (70-99) 136 mg/dL (70-99) 141 mg/dL (70-99) Urine Collection Type Unknown Urine Color Yellow Urine Clarity Clear Urine pH 5.5 Urine Specific [place] 1.015 Urine Protein >=300 mg/dL (NEG-TRACE) Urine Glucose (UA) Negative mg/dL (NEG) Urine Ketones (Stick) Negative mg/dL (NEG) Urine Blood Trace (NEG) Urine Nitrite Negative (NEG) Urine Bilirubin Negative (NEG) Urine Urobilinogen Dipstick 0.2 mg/dL (0.2 mg/dL) Urine Leukocyte Esterase Negative (NEG) Urine RBC 0 /HPF (0-2) Urine WBC 0 /HPF (0-4) Urine Bacteria 0 /HPF (0-FEW) Test 03/28/19 05:24 03/28/19 07:28 White Blood Count 7.7 x10^3/uL (4.0-11.0) Red Blood Count 2.63 x10^6/uL (4.30-5.70) Hemoglobin 7.1 g/dL (13.0-17.5) Hematocrit 21.6 % (39.0-53.0) Mean Corpuscular Volume 82 fL (79-100) Mean Corpuscular Hemoglobin 27 pg (25-35) Mean Corpuscular Hemoglobin Concent 33 g/dL (31-37) Red Cell Distribution Width 18.2 % (11.5-14.5) Platelet Count 121 x10^3/uL (140-400) Neutrophils (%) (Auto) 77 % (31-73) Lymphocytes (%) (Auto) 8 % (24-48) Monocytes (%) (Auto) 13 % (0-9) Eosinophils (%) (Auto) 2 % (0-3) Basophils (%) (Auto) 1 % (0-3) Neutrophils # (Auto) 5.9 x10^3/uL (1.8-7.7) Lymphocytes # (Auto) 0.6 x10^3/uL (1.0-4.8) Monocytes # (Auto) 1.0 x10^3/uL (0.0-1.1) Eosinophils # (Auto) 0.1 x10^3/uL (0.0-0.7) Basophils # (Auto) 0.0 x10^3/uL (0.0-0.2) Sodium Level 142 mmol/L (136-145) Potassium Level 4.0 mmol/L (3.5-5.1) Chloride Level 108 mmol/L (98-107) Carbon Dioxide Level 21 mmol/L (21-32) Anion Gap 13 (6-14) Blood Urea Nitrogen 70 mg/dL (8-26) Creatinine 5.5 mg/dL (0.7-1.3) Estimated GFR (Cockcroft-Gault) 12.8 Glucose Level 129 mg/dL (70-99) Calcium Level 7.8 mg/dL (8.5-10.1) Phosphorus Level 4.3 mg/dL (2.6-4.7) Albumin 2.8 g/dL (3.4-5.0) Glucose (Fingerstick) 128 mg/dL (70-99) Results All relevant outside records, renal labs, imaging studies, telemetry/EKG's were reviewed. NOA DANIELS MD Mar 28, 2019 11:24
--- NOTE | 2019-03-28 11:31 | PDOC ---
CARDIO Progress Notes Date and Time Date of Service 03/28/2019 Time of Evaluation 1120 Subjective Subjective: No Chest Pain, No shortness of breath, No Palpitations Vitals Vitals Vital Signs Date Time Temp Pulse Resp B/P (MAP) Pulse Ox O2 Delivery O2 Flow Rate FiO2 03/28/19 11:07 99.6 77 18 172/77 (108) 94 Room Air 99.6 Weight Weight [ ] Input and Output Intake and Output Intake and Output 03/28/19 07:00 Intake Total 1440 ml Output Total 1450 ml Balance -10 ml Intake Oral 1440 ml Output Urine Total 1450 ml Laboratory Labs Laboratory Tests Test 03/27/19 11:29 03/27/19 14:45 03/27/19 16:10 03/27/19 20:38 Glucose (Fingerstick) 142 mg/dL (70-99) 136 mg/dL (70-99) 141 mg/dL (70-99) Urine Collection Type Unknown Urine Color Yellow Urine Clarity Clear Urine pH 5.5 Urine Specific [place] 1.015 Urine Protein >=300 mg/dL (NEG-TRACE) Urine Glucose (UA) Negative mg/dL (NEG) Urine Ketones (Stick) Negative mg/dL (NEG) Urine Blood Trace (NEG) Urine Nitrite Negative (NEG) Urine Bilirubin Negative (NEG) Urine Urobilinogen Dipstick 0.2 mg/dL (0.2 mg/dL) Urine Leukocyte Esterase Negative (NEG) Urine RBC 0 /HPF (0-2) Urine WBC 0 /HPF (0-4) Urine Bacteria 0 /HPF (0-FEW) Test 03/28/19 05:24 03/28/19 07:28 White Blood Count 7.7 x10^3/uL (4.0-11.0) Red Blood Count 2.63 x10^6/uL (4.30-5.70) Hemoglobin 7.1 g/dL (13.0-17.5) Hematocrit 21.6 % (39.0-53.0) Mean Corpuscular Volume 82 fL (79-100) Mean Corpuscular Hemoglobin 27 pg (25-35) Mean Corpuscular Hemoglobin Concent 33 g/dL (31-37) Red Cell Distribution Width 18.2 % (11.5-14.5) Platelet Count 121 x10^3/uL (140-400) Neutrophils (%) (Auto) 77 % (31-73) Lymphocytes (%) (Auto) 8 % (24-48) Monocytes (%) (Auto) 13 % (0-9) Eosinophils (%) (Auto) 2 % (0-3) Basophils (%) (Auto) 1 % (0-3) Neutrophils # (Auto) 5.9 x10^3/uL (1.8-7.7) Lymphocytes # (Auto) 0.6 x10^3/uL (1.0-4.8) Monocytes # (Auto) 1.0 x10^3/uL (0.0-1.1) Eosinophils # (Auto) 0.1 x10^3/uL (0.0-0.7) Basophils # (Auto) 0.0 x10^3/uL (0.0-0.2) Sodium Level 142 mmol/L (136-145) Potassium Level 4.0 mmol/L (3.5-5.1) Chloride Level 108 mmol/L (98-107) Carbon Dioxide Level 21 mmol/L (21-32) Anion Gap 13 (6-14) Blood Urea Nitrogen 70 mg/dL (8-26) Creatinine 5.5 mg/dL (0.7-1.3) Estimated GFR (Cockcroft-Gault) 12.8 Glucose Level 129 mg/dL (70-99) Calcium Level 7.8 mg/dL (8.5-10.1) Phosphorus Level 4.3 mg/dL (2.6-4.7) Albumin 2.8 g/dL (3.4-5.0) Glucose (Fingerstick) 128 mg/dL (70-99) Physical Exam HEENT: Neck Supple W Full Motion Chest: Symmetric LUNGS: Clear to Auscultation Heart: S1S2, RRR (SR) Abdomen: Soft N/T Extremities: No Calf Tenderness, Other (2-3+ bilateral LE pitting edema) Neurology: alert, oriented, follow commands Assessment Assessment 1. ASA on CKD3/uremic: possibly med related and progression of his CKD 2. Chronic diastolic CHF: mainly due to renal dysfunction, compensated. EF and WM nml. 3. URI which likely induced vertigo: per PCP 4. HTN urgency: remains labile 5. DM2: on insulin therapy. 6. Chronic anemia: typical Hgb at 8.5 per pt, takes Fe 7. Obesity 8. Chronic leg edema Recommendations 1. Refusing initiation of dialysis so far and would like to consult with his outpt drapery maker Dr Araujo. Defer any further diuretic therapy to nephrology 2. Continue with current regimen with addition of hydralazine. Change metoprolol to coreg. Titrate up as warranted. No ARB. 3. Will follow along peripherally 4. Consult SS in regards to medicare benefits, disabililty, FMLA in reference to potential dialysis. 5. Potential candidate for renal transplant, referral per nephrology. MARVIN WIN [employer]ATOR AND [employer]ERIL[employer] Mar 28, 2019 11:31
[2019-03-28 11:39] VITALS: BP 172/77
[2019-03-28] MEDS: CYANOCOBALAMIN (VITAMIN B-12) 1,000 MCG TABLET. PO SCH (11:39)
[2019-03-28] MEDS: FOLIC/VIT B COMP W-C (RENAL) TABLET. PO SCH (11:39)
[2019-03-28] MEDS: TERAZOSIN 5 MG CAPSULE. PO SCH (11:39)
[2019-03-28] MEDS: FERROUS SULFATE 325 MG TABLET. PO SCH (11:39)
--- NOTE | 2019-03-28 12:46 | NUR ---
Discharge Note: LOGAN DUQUE [facility] Discharge instructions and discharge home medications reviewed with Patient and a copy given. All questions have been answered and understanding verbalized. The following instructions and handouts were given: follow up instructions Discontinued lines and drains: 20 gauge left AC, tip intact. patient tolerated well. Patient discharged to home with self care via family.
[2019-03-28] MEDS ORDERED: MECLIZINE HCL 12.5 MG TABLET. PO PRN (13:30)
[2019-03-28] MEDS ORDERED: hydrALAZINE 25 MG TABLET PO SCH ×2 (14:00)
[2019-03-28] MEDS ORDERED: CARVEDILOL 12.5 MG TABLET. PO SCH (17:00)
== END 2019-03-28 16:33 | disposition home or self-care (01) | DRG 682 ==
LOC: ER 21:59 → 6 SOUTH 03-27 01:04
PROVIDERS: ADMIT Internal Medicine; ATTEND Internal Medicine
DX: N17.9 Acute kidney failure, unspecified (principal); J81.0 Acute pulmonary edema; I13.0 Hypertensive heart and chronic kidney disease with heart failure and stage 1 through stage 4 chronic kidney disease, or unspecified chronic kidney disease; E87.70 Fluid overload, unspecified; N18.4 Chronic kidney disease, stage 4 (severe); A05.9 Bacterial foodborne intoxication, unspecified; D64.9 Anemia, unspecified; E11.22 Type 2 diabetes mellitus with diabetic chronic kidney disease; E66.9 Obesity, unspecified; I16.0 Hypertensive urgency; Z79.4 Long term (current) use of insulin; Z82.49 Family history of ischemic heart disease and other diseases of the circulatory system; M19.90 Unspecified osteoarthritis, unspecified site; Z88.0 Allergy status to penicillin
CPT/HCPCS: 36415; 71045; 80053; 80061; 80069; 81001; 82962; 83036; 83690; 84443; 85025; 93005; 93306; 93970; 96374; J1940; J2405; J8597; 99285-25; G0378